=== PATIENT | female | born 2000 | race Caucasian/White ===

== ENCOUNTER 2024-09-05 04:29 | Emergency (ER) | payer SELFPAY ==
--- OUTSIDE RECORDS SUMMARY | 2024-09-05 04:33 | XMS REPORT | Continuity of Care Document ---
Author Name Unknown Address [address] [facility] [address] [place] [address] [facility] Address [address] [facility] [address] [place] [address] Care Team Providers Care Molder Offbearer Name Role Phone PCP, PATIENT DOES NOT HAVE A Primary Care Physic dale Unavailable Caroline PACK Attending Clinician Unavailable Caroline PACK Attending Clinician Unavailable Caroline Valdivia Attending Clinician [phone] Heri Luis MD Attending Clinician [phone] LAUREN YODER Attending Clinician Unavailab Lauren Russ DO Attending Clinician [phone] FEDERICA RESENDEZ Attending Clinician Unavailable Federica Palma Attending Clinician [phone] Janki Oscar LVN Attending Clinician + [phone] DAWSON PETERS Attending Clinician Unavailable DAWSON PETERS Attending Clinician Unavailable Mane Duarte DO Attending Clinician [phone] SRI ROJAS Attending Clinician Unav Sri Hinton MD Attending Clinician + CHRISTINE ORTEGA Attending Clinician Unavailable Christine Hong Attending Clinician [phone] IESHA GAMEZ Attending Clinician Unavailable Iesha Gamez NP Attending Clinician [phone] Yarima MD, [place] S Attending Clinician [phone] EDGAR ORONA Attending Clinician Unavailable DAWSON PETERS Admitting Clinician Unavailable SRI ROJAS Admitting Clinician Unav CHRISTINE Velasco Admitting Clinician Unavailable IESHA GAMEZ Admitting Clinician Unavailable Payers Payer Name Policy Type Policy Number Effective Date Expirati on Date Source Problems Condition Name Condition Details Condition Category Status Onset Date Resolution Date Last Treatment Date Treating Clinician Comments Source Mild intermitte nt asthma with exacerbati on Mild intermitte nt asthma with exacerbati on Disease Active 08-19 00:00: 00 [facility] Obesity (BMI 30-39.9) Obesity (BMI 30-39.9) Disease Active 08-19 00:00: 00 [facility] Vitamin D deficiency Vitamin D deficiency Disease Active 11-10 00:00: 00 [facility] Mild persistent asthma without complicati on Mild persistent asthma without complicati on Disease Active 10-02 00:00: 00 [facility] Perennial allergic rhinitis, unspecifie d allergic rhinitis trigger Perennial allergic rhinitis, unspecifie d allergic rhinitis trigger Disease Active 10-02 00:00: 00 [facility] Allergies, Adverse Reactions, Alerts Allergy Name Allergy Type Status Severity Reaction(s) Onset Date Inactive Date Treating Clinician Comments Source NO KNOWN ALLERGIE S Drug Class Active [facility] Social History Social Habit Start Date Stop Date Quantity Comments Source Gender identity [facility] History of tobacco use Passive smoker [facility] Alcoholic beverage intake 2024-03-15 00:00:00 2024-03-15 00:00:00 0 /d [facility] Alcohol intake 2023-08-22 00:00:00 2023-08-22 00:00:00 0 /d [facility] Tobacco use and exposure 2023-08-19 00:00:00 2023-08-19 00:00:00 Smokeless tobacco non-user [facility] History of Social function 2023-08-19 00:00:00 2023-08-19 00:00:00 [facility] Exposure to SARS-CoV-2 (event) 2022-11-10 00:00:00 2022-11-20 08:54:00 Not sure [facility] Sex assigned at 2001 00:00:00 2000 00:00:00 [facility] Smoking Status Start Date Stop Date Source Never smoked tobacco [facility] Medications Ordered Medication Name Filled Medication Name Start Date Stop Date Current Medication? Ordering Clinician Indication Dosage Frequency Signature (SIG) Comments Components Source ipratropium -albuteroL (DUONEB) 0.5 mg-3 mg(2.5 mg base)/3 mL nebulizer solution 3 mL 03-15 22:15: 00 03-15 21:27 :00 No 3mL 3 mL, Inhalation , ONCE, 1 dose, On Thu03/15/24 at 1715, Routine [facility] predniSONE (DELTASONE) tablet 50 mg 03-15 22:00: 00 03-15 21:25 :00 No 50mg 50 mg, Oral, ONCE, 1 dose, On Thu03/15/24 at 1700, Routine [facility] albuterol 90 mcg/actuati on inhaler 03-15 00:00: 00 Yes [id number] 2{puff} Inhale 2 Puffs every 4 (four) hours as needed for Wheezing or Shortness of Breath. [facility] ipratropium -albuteroL (DUONEB) 0.5 mg-3 mg(2.5 mg base)/3 mL nebulizer solution 3 mL 02-14 17:00: 00 Yes 3mL 3 mL, Inhalation , QID, First dose on Thu02/15/24 at 1200, Until Discontinu ed, Routine [facility] methylPREDN ISolone sod succ (SOLU-MEDRO L (PF)) injection 40 mg 02-14 15:30: 00 02-14 15:30 :00 No 40mg 40 mg, Intravenou s, ONCE, 1 dose, On Thu02/15/24 at 1030, NILO [facility] albuterol 90 mcg/actuati on inhaler 02-14 00:00: 00 Yes [id number] 2{puff} Inhale 2 Puffs every 4 (four) hours as needed for Wheezing or Shortness of Breath. [facility] albuterol 2.5 mg /3 mL (0.083 %) nebulizer solution 02-14 00:00: 00 Yes [id number] 2.5mg Inhale 3 mL every 4 (four) hours as needed for Wheezing or Shortness of Breath. [facility] ipratropium -albuteroL (DUONEB) 0.5 mg-3 mg(2.5 mg base)/3 mL nebulizer solution 3 mL 12-31 16:45: 00 12-31 16:05 :00 No 3mL 3 mL, Inhalation , ONCE, 1 dose, On Thu01/01/24 at 1145, Routine [facility] dexamethaso ne sod phos PF injection 10 mg 12-31 15:45: 00 12-31 15:53 :00 No 10mg 10 mg, Oral, ONCE, 1 dose, On Thu01/01/24 at 1045, 1 mL [facility] albuterol 90 mcg/actuati on inhaler 12-31 00:00: 00 02-14 00:00 :00 No [id number] 2{puff} Inhale 2 Puffs every 4 (four) hours as needed for Wheezing or Shortness of Breath. [facility] predniSONE 10 mg tablet 12-31 00:00: 00 01-05 04:59 :00 No [id number] 30mg Take 3 tablets by mouth in the morning for 4 days. [facility] albuterol (PROVENTIL) 2.5 mg /3 mL (0.083 %) nebulizer solution 7.5 mg 10-27 13:45: 00 10-27 12:36 :00 No 7.5mg 7.5 mg, Inhalation , ONCE, 1 dose, On Thu10/28/23 at 0845, STAT [facility] albuterol 90 mcg/actuati on inhaler 2024-0 4-03 00:00: 00 02-14 00:00 :00 No [id number] 2{puff} Inhale 2 Puffs every 4 (four) hours as needed for Wheezing or Shortness of Breath. [facility] montelukast 10 mg tablet 08-21 00:00: 00 Yes [id number] 10mg Take 1 tablet by mouth in the morning. [facility] budesonide- formoteroL (SYMBICORT) 160-4.5 mcg/actuati on inhaler 2 Puff 08-20 17:45: 00 Yes 2{puff} 2 Puff, Inhalation , BID, First dose (after last modificati on) on Thu08/20/23 at 1145, Until Discontinu ed, Routine [facility] escitalopra m oxalate (LEXAPRO) 5 mg tablet 08-20 13:36: 40 Yes 5mg Take 1 tablet by mouth in the morning. [facility] budesonide- formoteroL 160-4.5 mcg/actuati on inhaler 08-20 00:00: 00 Yes [id number] 2{puff} Inhale 2 Puffs in the morning and 2 Puffs in the evening. [facility] dextrometho rphan-guaif enesin 10-100 mg/5 mL solution 08-20 00:00: 00 Yes [id number] 10mL Take 10 mL by mouth every 6 (six) hours as needed for Cough. [facility] methylPREDN ISolone 4 mg tablets 08-20 00:00: 00 Yes [id number] Take by mouth SEE-INSTRU CTIONS. follow package directions [facility] enoxaparin (LOVENOX) injection 40 mg 08-19 23:00: 00 Yes 40mg 40 mg, Subcutaneo us, DAILY, First dose on Thu08/19/23 at 1700, Until Discontinu ed, Routine [facility] ipratropium -albuteroL (DUONEB) 0.5 mg-3 mg(2.5 mg base)/3 mL nebulizer solution 3 mL 08-19 18:00: 00 Yes 3mL 3 mL, Inhalation , Q4H, First dose (after last modificati on) on Thu08/19/23 at 1200, Until Discontinu ed, Routine [facility] escitalopra m oxalate (LEXAPRO) tablet 5 mg 08-19 17:30: 00 Yes 5mg 5 mg, Oral, DAILY, First dose on Thu08/19/23 at 1130, Until Discontinu ed, Routine [facility] montelukast (SINGULAIR) tablet 10 mg 08-19 17:00: 00 Yes 10mg 10 mg, Oral, DAILY, First dose on Thu08/19/23 at 1100, Until Discontinu ed, Routine [facility] dextrometho rphan-guaif enesin (ROBITUSSIN DM) 10-100 mg/5 mL solution 10 mL 08-19 16:49: 59 Yes 10mL 10 mL, Oral, Q6HPRN, Starting on Thu08/19/23 at 1049, Until Discontinu ed, Routine, Cough [facility] ipratropium -albuteroL (DUONEB) 0.5 mg-3 mg(2.5 mg base)/3 mL nebulizer solution 3 mL 08-19 16:49: 43 Yes 3mL 3 mL, Inhalation , Q4HPRN, Starting on Thu08/19/23 at 1049, Until Discontinu ed, Routine, Wheezing [facility] predniSONE (DELTASONE) tablet 40 mg 08-19 15:00: 00 08-24 14:59 :00 No 40mg 40 mg, Oral, DAILY, 5 doses, First dose on Thu08/19/23 at 0900, Last dose on Thu08/23/23 at 0900, Routine [facility] ipratropium -albuteroL (DUONEB) 0.5 mg-3 mg(2.5 mg base)/3 mL nebulizer solution 3 mL 08-19 14:00: 00 08-19 16:50 :22 No 3mL 3 mL, Inhalation , QID, First dose on Thu08/19/23 at 0800, Until Discontinu ed, Routine [facility] traMADoL (ULTRAM) tablet 50 mg 08-19 12:41: 39 08-21 12:40 :39 No 50mg 50 mg, Oral, Q8HPRN, Starting on Thu08/19/23 at 0641, Until Thu08/21/23 at 0640, Routine, Pain (scale 4-6) [facility] acetaminoph en (TYLENOL) tablet 650 mg 08-19 12:41: 37 Yes 650mg 650 mg, Oral, Q6HPRN, Starting on Thu08/19/23 at 0641, Until Discontinu ed, Routine, Pain (scale 1-3) [facility] ipratropium -albuteroL (DUONEB) 0.5 mg-3 mg(2.5 mg base)/3 mL nebulizer solution 3 mL 08-19 12:15: 00 08-19 11:13 :00 No 3mL 3 mL, Inhalation , ONCE, 1 dose, On Thu08/19/23 at 0615, Routine [facility] magnesium sulfate in water 2 gram/50 mL (4 %) infusion 2 g 08-19 12:00: 00 08-19 12:43 :00 No 2g 2 g, IV Piggyback, Administer over 60 Minutes, ONCE, 1 dose, On Thu08/19/23 at 0600, Routine [facility] NaCl 0.9% (NS) bolus infusion 1,000 mL 08-19 11:45: 00 08-19 13:00 :00 No 1000mL at 999 mL/hr, 1,000 mL, IV Infusion, ONCE, 1 dose, On Thu08/19/23 at 0545, NILO [facility] methylpredn isolone sod succ (SOLU-MEDRO L) injection 125 mg 08-19 11:45: 00 08-19 11:12 :00 No 125mg 125 mg, Intravenou s, ONCE, 1 dose, On Thu08/19/23 at 0545, 2 mL [facility] ipratropium -albuteroL (DUONEB) 0.5 mg-3 mg(2.5 mg base)/3 mL nebulizer solution 3 mL 2022-07 18:00: 00 05-08 18:47 :00 No 3mL 3 mL, Inhalation , ONCE, 1 dose, On Thu05/08/23 at 1300, Routine [facility] methylpredn isolone sod succ (SOLU-MEDRO L) injection 125 mg 2022-07 18:00: 00 05-08 18:44 :00 No 125mg 125 mg, Intramuscu lar, ONCE, 1 dose, On Thu05/08/23 at 1300, NILO [facility] predniSONE 20 mg tablet 2022-07 00:00: 00 Yes [id number] 1 PO BID x 4 days [facility] albuterol 90 mcg/actuati on inhaler 2022-07 00:00: 00 Yes [id number] 2{puff} Inhale 2 Puffs every 4 (four) hours as needed for Wheezing or Shortness of Breath. [facility] albuterol 2.5 mg /3 mL (0.083 %) nebulizer solution 04-14 00:00: 00 Yes [id number] 2.5mg Inhale 3 mL every 4 (four) hours as needed for Wheezing or Shortness of Breath. [facility] predniSONE 20 mg tablet 04-14 00:00: 00 Yes [id number] 1 PO BID x 4 days [facility] albuterol 90 mcg/actuati on inhaler 04-14 00:00: 00 10-27 00:00 :00 No [id number] 2{puff} Inhale 2 Puffs every 4 (four) hours as needed for Wheezing or Shortness of Breath. [facility] iopamidol (ISOVUE 370-500 mL) injection 75 mL 11-20 17:00: 00 11-20 17:15 :00 No [id number] 75mL 75 mL, Intravenou s, ONCE, 1 dose, On Thu11/20/22 at 1200, Routine [facility] NaCl 0.9% (NS) bolus infusion 1,000 mL 11-20 16:00: 00 11-20 17:19 :00 No 1000mL at 999 mL/hr, 1,000 mL, IV Infusion, ONCE, 1 dose, On Thu11/20/22 at 1100, STAT [facility] acetaminoph en (TYLENOL) tablet 1,000 mg 11-20 16:00: 00 11-20 14:58 :00 No 1000mg 1,000 mg, Oral, ONCE, 1 dose, On Thu11/20/22 at 1100, Routine [facility] ondansetron (ZOFRAN (PF)) injection 4 mg 11-20 15:00: 00 11-20 14:56 :00 No 4mg 4 mg, Slow IV Push, ONCE, 1 dose, [facility] Aarti 11/20/22 at 1000[facility] disintegrat ing tablet 11-20 00:00: 00 08-19 00:00 :00 No [id number] 4mg Take 1 tablet by mouth every 8 (eight) hours as needed for Nausea and Vomiting (N/V). [facility] NaCl 0.9% (NS) bolus infusion 1,000 mL 08-08 20:15: 00 08-08 21:12 :00 No 1000mL at 999 mL/hr, 1,000 mL, IV Piggyback, ONCE, 1 dose, On Thu08/08/22 at 1415, STAT [facility] NaCl 0.9% (NS) IV infusion 1,000 mL 08-08 18:45: 00 08-08 21:12 :00 No 1000mL at 999 mL/hr, Intravenou s, ONCE, 1 dose, On Thu08/08/22 at 1245, NILO [facility] iopamidol (ISOVUE 370-500 mL) injection 84 mL 08-08 17:00: 00 08-08 15:56 :00 No [id number] 84mL 84 mL, Intravenou s, ONCE, 1 dose, On Thu08/08/22 at 1100, Routine [facility] dicyclomine (BENTYL) injection 20 mg 08-08 16:30: 00 08-08 16:01 :00 No 20mg 20 mg, Intramuscu lar, ONCE, 1 dose, On Thu08/08/22 at 1030, Routine [facility] amoxicillin -clavulanat e 875-125 mg per tablet 08-08 00:00: 00 08-19 00:00 :00 No [id number] 1{tbl} Take 1 tablet by mouth every 12 (twelve) hours. [facility] dicyclomine 20 mg tablet 08-08 00:00: 00 08-19 00:00 :00 No [id number] 20mg Take 1 tablet by mouth 4 (four) times daily as needed for Abdominal pain. [facility] clindamycin (CLEOCIN) injection 600 mg 03-04 02:30: 00 03-04 02:30 :00 No 600mg 600 mg, Intramuscu lar, ONCE, 1 dose, On Thu03/03/22 at 2130, NILO
Re ason for Anti-Infec tive: Documented Infection< br>Documen spring Infection Site: Skin / Soft Tissue
Duration of Therapy: Other (see Comments)< br>Restric spring use approved by: ED PROVIDER [facility] clindamycin 300 mg capsule 03-03 00:00: 00 Yes [id number] 300mg Take 1 capsule by mouth 4 (four) times daily. [facility] ibuprofen 800 mg tablet 03-03 00:00: 00 08-19 00:00 :00 No [id number] 800mg Take 1 tablet by mouth every 8 (eight) hours as needed for Pain (scale 4-6). [facility] ALBUTEROL 2.5 mg /3 mL (0.083 %) nebulizer solution 3-15 00:00: 00 02-14 00:00 :00 No [id number] USE 1 VIAL IN NEBULIZER EVERY 6 HOURS NEEDED FOR SHORTNESS OF BREATH AND WHEEZING [facility] albuterol 90 mcg/actuati on inhaler 12-29 00:00: 00 08-19 00:00 :00 No [id number] 2{puff} Inhale 2 Puffs every 4 (four) hours as needed for Wheezing, Shortness of Breath or Chest tightness. [facility] montelukast 10 mg tablet 12-29 00:00: 00 08-19 00:00 :00 No [id number] 10mg Take 1 tablet by mouth every evening. [facility] Immunizations Ordered Immunization Name Filled Immunization Name Date Status Comments Source Meningococcal Polysaccharide (groups A, C, Y and W-135) conjugate vaccine (MCV4P) 2017-12-29 00:00:00 Completed [facility]9 2017-12-29 00:00:00 Completed [facility] Meningococcal Polysaccharide (groups A, C, Y and W-135) conjugate vaccine (MCV4P) 2017-12-29 00:00:00 Completed [facility] HPV9 2017-12-29 00:00:00 Completed [facility] Meningococcal Polysaccharide (groups A, C, Y and W-135) conjugate vaccine (MCV4P) 2017-12-29 00:00:00 Completed [facility] HPV9 2017-12-29 00:00:00 Completed [facility] Meningococcal Polysaccharide (groups A, C, Y and W-135) conjugate vaccine (MCV4P) 2017-12-29 00:00:00 Completed [facility] HPV9 2017-12-29 00:00:00 Completed [facility] Meningococcal Polysaccharide (groups A, C, Y and W-135) conjugate vaccine (MCV4P) 2017-12-29 00:00:00 Completed [facility] 2017-12-29 00:00:00 Completed [facility] 2016-11-06 00:00:00 Completed [facility] 2016-11-06 00:00:00 Completed [facility] 2016-11-06 00:00:00 Completed [facility] 2016-11-06 00:00:00 Completed [facility] HPV9 2016-11-06 00:00:00 Completed [facility] HPV9 Unknown Completed [facility] Meningococcal Polysaccharide (groups A, C, Y and W-135) conjugate vaccine (MCV4P) Unknown Completed [facility] HPV9 Unknown Completed [facility] Meningococcal Polysaccharide (groups A, C, Y and W-135) conjugate vaccine (MCV4P) Unknown Completed [facility] HPV9 Unknown Completed [facility] Meningococcal Polysaccharide (groups A, C, Y and W-135) conjugate vaccine (MCV4P) Unknown Completed [facility] HPV9 Unknown Completed [facility] Meningococcal Polysaccharide (groups A, C, Y and W-135) conjugate vaccine (MCV4P) Unknown Completed [facility] HPV9 Unknown Completed [facility] Meningococcal Polysaccharide (groups A, C, Y and W-135) conjugate vaccine (MCV4P) Unknown Completed [facility] HPV9 Unknown Completed [facility] Meningococcal Polysaccharide (groups A, C, Y and W-135) conjugate vaccine (MCV4P) Unknown Completed [facility] HPV9 Unknown Completed [facility] Meningococcal Polysaccharide (groups A, C, Y and W-135) conjugate vaccine (MCV4P) Unknown Completed [facility] Vital Signs Vital Name Observation Time Observation Value Comments S ource Systolic blood pressure 2024-03-15 22:45:00 121 mm[Hg] [facility] Diastolic blood pressure 2024-03-15 22:45:00 70 mm[Hg] [facility] Heart rate 2024-03-15 22:45:00 78 /min [facility] Body temperature 2024-03-15 22:45:00 36.67 Maia [facility] Respiratory rate 2024-03-15 22:45:00 18 /min [facility] Oxygen saturation in Arterial blood by Pulse oximetry 2024-03-15 22:45:00 100 /min [facility] Body height 2024-03-15 21:02:00 157.5 cm [facility] Body weight 2024-03-15 21:02:00 77.111 kg [facility] BMI 2024-03-15 21:02:00 31.09 kg/m2 [facility] Systolic blood pressure 2024-02-15 15:30:00 118 mm[Hg] [facility] Diastolic blood pressure 2024-02-15 15:30:00 84 mm[Hg] [facility] Heart rate 2024-02-15 15:30:00 90 /min [facility] Respiratory rate 2024-02-15 15:30:00 17 /min [facility] Oxygen saturation in Arterial blood by Pulse oximetry 2024-02-15 15:30:00 93 /min [facility] Body temperature 2024-02-15 15:19:00 37.11 Maia [facility] Body height 2024-02-15 15:19:[address] [facility] Body weight 2024-02-15 15:19:00 77.111 kg [facility] BMI 2024-02-15 15:19:00 29.18 kg/m2 [facility] Systolic blood pressure 2024-01-01 17:03:00 119 mm[Hg] [facility] Diastolic blood pressure 2024-01-01 17:03:00 78 mm[Hg] [facility] Heart rate 2024-01-01 17:03:00 74 /min [facility] Respiratory rate 2024-01-01 17:03:00 16 /min [facility] Oxygen saturation in Arterial blood by Pulse oximetry 2024-01-01 17:03:00 98 /min [facility] Body temperature 2024-01-01 15:35:00 37.22 Maia [facility] Body height 2024-01-01 15:35:00 [facility]5 [facility] 2024-01-01 15:35:00 76.204 kg [facility] BMI 2024-01-01 15:35:00 30.73 kg/m2 [facility] Systolic blood pressure 2023-10-28 15:00:00 113 mm[Hg] [facility] Diastolic blood pressure 2023-10-28 15:00:00 76 mm[Hg] [facility] Heart rate 2023-10-28 15:00:00 105 /min [facility] Respiratory rate 2023-10-28 15:00:00 16 /min [facility] Oxygen saturation in Arterial blood by Pulse oximetry 2023-10-28 15:00:00 96 /min [facility] Body temperature 2023-10-28 12:27:00 37.39 Maia [facility] Body height 2023-10-28 12:27:00 157.5 cm [facility] Body weight 2023-10-28 12:27:00 76.658 kg [facility] BMI 2023-10-28 12:27:00 30.91 kg/m2 [facility] Systolic blood pressure 2023-08-20 18:28:00 120 mm[Hg] [facility] Diastolic blood pressure 2023-08-20 18:28:00 78 mm[Hg] [facility] Heart rate 2023-08-20 18:28:00 111 /min [facility] Body temperature 2023-08-20 18:28:00 36.56 Maia [facility] Respiratory rate 2023-08-20 18:28:00 16 /min [facility] Oxygen saturation in Arterial blood by Pulse oximetry 2023-08-20 18:28:00 97 /min [facility] Body weight 2023-08-20 09:13:00 80.468 kg [facility] BMI 2023-08-20 09:13:00 32.45 kg/m2 [facility] Body height 2023-08-19 15:27:00 157.5 cm [facility] Systolic blood pressure 2023-05-08 20:30:00 120 mm[Hg] [facility] Diastolic blood pressure 2023-05-08 20:30:00 73 mm[Hg] [facility] Heart rate 2023-05-08 20:30:00 72 /min [facility] Body temperature 2023-05-08 20:30:00 37.28 Maia [facility] Respiratory rate 2023-05-08 20:30:00 16 /min [facility] Oxygen saturation in Arterial blood by Pulse oximetry 2023-05-08 20:30:00 99 /min [facility] Body height 2023-05-08 16:31:[address] [facility] Body weight 2023-05-08 16:31:[address] [facility] BMI 2023-05-08 16:31:00 31.09 kg/m2 [facility] Oxygen saturation in Arterial blood by Pulse oximetry 2023-03-23 23:03:00 98 /min [facility] Systolic blood pressure 2023-03-23 23:00:00 117 mm[Hg] [facility] Diastolic blood pressure 2023-03-23 23:00:00 75 mm[Hg] [facility] Heart rate 2023-03-23 23:00:00 85 /min [facility] Respiratory rate 2023-03-23 23:00:00 16 /min [facility] Body temperature 2023-03-23 22:05:00 36.72 Maia [facility] Body height 2023-03-23 22:05:00 157.5 cm [facility] Body weight 2023-03-23 22:05:00 77.111 kg [facility] BMI 2023-03-23 22:05:00 31.09 kg/m2 [facility] Systolic blood pressure 2022-11-20 17:20:00 121 mm[Hg] [facility] Diastolic blood pressure 2022-11-20 17:20:00 78 mm[Hg] [facility] Heart rate 2022-11-20 17:20:00 96 /min [facility] Respiratory rate 2022-11-20 17:20:00 17 /min [facility] Oxygen saturation in Arterial blood by Pulse oximetry 2022-11-20 17:20:00 95 /min [facility] Body temperature 2022-11-20 14:19:00 38.78 Maia [facility] Body weight 2022-11-20 13:52:00 75.751 kg [facility] BMI 2022-11-20 13:52:00 30.54 kg/m2 [facility] Heart rate 2022-08-08 19:10:07 96 /min [facility] Oxygen saturation in Arterial blood by Pulse oximetry 2022-08-08 19:10:07 97 /min [facility] Systolic blood pressure 2022-08-08 19:00:00 124 mm[Hg] [facility] Diastolic blood pressure 2022-08-08 19:00:00 81 mm[Hg] [facility] Respiratory rate 2022-08-08 19:00:00 15 /min [facility] Body temperature 2022-08-08 14:48:00 37.17 Maia [facility] Body height 2022-08-08 14:48:00 157.5 cm [facility] Body weight 2022-08-08 14:48:00 78.926 kg [facility] BMI 2022-08-08 14:48:00 31.83 kg/m2 [facility] Systolic blood pressure 2022-03-04 03:45:00 135 mm[Hg] [facility] Diastolic blood pressure 2022-03-04 03:45:00 80 mm[Hg] [facility] Heart rate 2022-03-04 03:45:00 79 /min [facility] Res[facility] rate 2022-03-04 03:45:00 18 /min [facility] Oxygen saturation in Arterial blood by Pulse oximetry 2022-03-04 03:45:00 100 /min [facility] Body temperature 2022-03-04 00:53:00 36.83 Maia [facility] Body height 2022-03-04 00:53:00 157.5 cm [facility] Body weight 2022-03-04 00:53:00 86.183 kg [facility] BMI 2022-03-04 00:53:00 34.75 kg/m2 [facility] Procedures Procedure Date / Time Performed Performing Clinicia n Source POCT TEST 2024-03-15 22:31:00 Caroline Pack [facility] BASIC METABOLIC PANEL (NA, K, CL, CO2, GLUCOSE, BUN, CREATININE, CA) 2023-08-20 10:14:00 Pete Morgan [facility] CBC WITH DIFF 2023-08-20 10:14:00 [facility] WITH DIFF 2023-08-19 11:25[facility] 2023-08-19 11:14:41 Felicia [facility] COMP. METABOLIC PANEL ([id number]) 2023-08-19 11:09:00 Mane Duarte [facility] CONSENT/REFUSAL FOR DIAGNOSIS AND TREATMENT 2023-08-19 10:53:04 Doctor Unassigned, [facility] ASSIGNMENT OF BENEFITS 2023-05-08 17:46:50 Docto r Unassigned, [facility] CONSENT/REFUSAL FOR DIAGNOSIS AND TREATMENT 2023-05-08 17:46:10 Doctor Unassigned, [facility] XR CHEST 1 VW 2023-03-23 23:04:08 Sri Rojas [facility] CT ABDOMEN PELVIS W CONTRAST 2022-11-20 17:05:00 Christine Ortega [facility] RAPID INFLUENZA A/B 2022-11-20 15:00:00 Christine Ortega [facility] COVID-19 (ID NOW RAPID TESTING) 2022-11-20 15:00:00 Christine Ortega [facility] LIPASE 2022-11-20 14:26:00 Christine Ortega [facility] COMP. METABOLIC PANEL ([id number]) 2022-11-20 14:26:00 Christine Ortega [facility] CBC WITH DIFF 2022-11-20 14:26:00 Christine Ortega [facility] URINALYSIS 2022-11-20 14:26:00 Christine Ortega [facility] POCT TEST 2022-11-20 14:17:00 Christine Ortega [facility] US OVARY TORSION 2022-08-08 19:59:03 Iesha Gamez [facility] CT ABDOMEN PELVIS W CONTRAST 2022-08-08 16:13:53 Iesha Gamez [facility] POCT TEST 2022-08-08 15:11:00 Iesha Gamez [facility] URINALYSIS 2022-08-08 15:08:00 Iesha Gamez [facility] LIPASE 2022-08-08 15:06:00 Iesha Gamez [facility] COMP. METABOLIC PANEL ([id number]) 2022-08-08 15:06:00 Iesha Gamez [facility] CBC WITH DIFF 2022-08-08 15:06:00 Iesha Gamez [facility] NOTICE OF PRIVACY PRACTICES 2022-03-04 00:43:47 Doctor Unassigned, [facility] CONSENT/REFUSAL FOR DIAGNOSIS AND TREATMENT 2022-03-04 00:43:14 Doctor Unassigned, [facility] Encounters Start Date/Time End Date/Time Encounter Type Admission Type Attending Clinicians Care Facility Care Department Encounter ID Source 2024-03-15 16:05:00 2024-03-15 17:47:00 Emergency Caroline GASTELUM K [facility] ERT [id number] [facility] 2024-03-15 16:05:00 2024-03-15 17:47:00 Emergency Caroline Pack [facility] 1..840.114 350.1.13.10 4.2.7.2.686 [id number] [facility] 2024-02-15 10:12:00 2024-02-15 10:45:00 Emergency LAUREN SMART [facility] ERT [id number] [facility] 2024-02-15 10:12:00 2024-02-15 10:45:00 Emergency Lauren Yoder [facility] 1..840.114 350.1.13.10 4.2.7.2.686 [id number] [facility] 2024-01-01 10:45:00 2024-01-01 12:05:00 Emergency X [facility] ERT [id number] [facility] 2024-01-01 10:45:00 2024-01-01 12:05:00 Emergency Keven [facility] 1.2.840.114 350.1.13.10 4.2.7.2.686 [id number] [facility] 2023-10-28 07:24:00 2023-10-28 10:41:00 Emergency X [facility] ERT [id number] [facility] 2023-10-28 07:24:00 2023-10-28 10:41:00 Emergency Paresh [facility] 1.2.840.114 350.1.13.10 4.2.7.2.686 [id number] [facility] 2023-08-21 00:00:00 2023-08-21 00:00:00 Transition of Care Janki Oscar 1.2.840.114 350.1.13.10 4.2.7.2.686 [id number] [facility] 2023-08-19 04:54:00 2023-08-20 13:30:00 Inpatient X [facility] KRISTINA [id number] [facility] 2023-08-19 04:54:00 2023-08-20 13:30:00 Hospital Encounter Mane Duarte Dawson [facility] 1.2.840.114 350.1.13.10 4.2.7.2.686 [id number] [facility] 2023-05-08 11:41:00 2023-05-08 15:33:00 Emergency X Caroline PACK [facility] ERT [id number] [facility] 2023-05-08 11:41:00 2023-05-08 15:33:00 Emergency Caroline Pack [facility] 1.2.840.114 350.1.13.10 4.2.7.2.686 [id number] [facility] 2023-04-14 15:15:00 2023-04-14 18:50:00 Emergency X Caroline PACK [facility] ERT [id number] [facility] 2023-03-23 16:57:00 2023-03-23 18:37:00 Emergency X SRI ROJAS [facility] ERT [id number] [facility] 2023-03-23 16:57:00 2023-03-23 18:37:00 Emergency Sri Rojas [facility] 1.2.840.114 350.1.13.10 4.2.7.2.686 [id number] [facility] 2022-11-20 08:46:00 2022-11-20 14:07:00 Emergency X CHRISTINE ORTEGA [facility] ERT [id number] [facility] 2022-11-20 08:46:00 2022-11-20 14:07:00 Emergency Christine Ortega S [facility] 1.2.840.114 350.1.13.10 4.2.7.2.686 [id number] [facility] 2022-08-30 14:46:00 2022-08-30 16:06:00 Emergency [facility] 1.2.840.114 350.1.13.10 4.2.7.2.686 [id number] [facility] 2022-08-30 14:46:00 2022-08-30 16:06:00 Emergency X [facility] ERT [id number] [facility] 2022-08-08 08:42:00 2022-08-08 15:16:00 Emergency X IESHA GAMEZ [facility] ERT [id number] [facility] 2022-08-08 08:42:00 2022-08-08 15:16:00 Emergency Iesha Gamez [facility] 1.2.840.114 350.1.13.10 4.2.7.2.686 [id number] [facility] 2022-03-03 19:59:00 2022-03-03 23:33:00 Emergency Edgar Orona [facility] 1.2.840.114 350.1.13.10 4.2.7.2.686 [id number] [facility] 2022-03-03 19:59:00 2022-03-03 23:33:00 Emergency X EDGAR ORONA [facility] ERT [id number] [facility] Results Test Description Test Time Test Comments Results Result Co mments Source [facility] [id number] 13:43:04EXAM: XR CHEST 1 VW COMPARISON: Chest radiographs dated 03/23/2023 HISTORY: 23 years old Female withasthma FINDINGS:Lines and tubes: None. Lungs: The lung volumes are normal. No focal opacities. No pleuralabnormalities are detected. Heart/Mediastinum: The cardiac silhouette appears normal. Bones and soft tissues: No focal osseous lesions.[facility] WITH [id number] 11:33:03* Test Item Value Reference Range Interpretation Comme nts WBC (test code = 6690-2) 10.37 See_Comment [Automated Soshow[employer]] The system which generated this result transmitted reference range: 4.30 - 11.10 10*3/?L. The reference range was not used to interpret this result as normal/abnormal. RBC (test code = 789-8) 4.95 See_Comment [Automated [employer]] The system which generated this result transmitted reference range: 3.93 - 5.25 10*6/?L. The reference range was not used to interpret this result as normal/abnormal. HGB (test code = 718-7) 13.5 g/dL 11.6-15.0 HCT (test code = 4544-3) 37.0 % 35.7-45.2 MCV (test code = 787-2) 74.7 fL 80.6-95.5 L MCH (test code = 785-6) 27.3 pg 25.9-32.8 MCHC (test code = 786-4) 36.5 g/dL 31.6-35.1 H RDW-SD (test code = 62522-5) 35.3 fL 39.0-49.9 L RDW-CV (test code = 788-0) 13.3 % 12.0-15.5 PLT (test code = 777-3) 174 See_Comment [Automated [employer] ge] The system which generated this result transmitted reference range: 166 - 358 10*3/?L. The reference range was not used to interpret this result as normal/abnormal. MPV (test code = 68003-5) 10.4 fL 9.5-12.9 NRBC/100 WBC (test code = 3147078572) 0.0 See_Comment [Automated OBOOK ssage] The system which generated this result transmitted reference range: 0.0 - 10.0 /100 WBCs. The reference range was not used to interpret this result as normal/abnormal. NRBC x10^3 (test code = 0408928362) See_Comment [Automated [employer] ge] The system which generated this result transmitted reference range: 10*3/?L. The reference range was not used to interpret this result as normal/abnormal. GRAN MAT (NEUT) % (test code = 770-8) 62.6 % IMM GRAN % (test code = 8672907828) 0.20 % LYMPH % (test code = 736-9) 27.6 % MONO % (test code = 5905-5) 5.1 % EOS % (test code = 713-8) 3.6 % BASO % (test code = 706-2) 0.9 % GRAN MAT x10^3(ANC) (test code = 9994572139) 6.50 10*3/uL 1.88-7.09 IMM GRAN x10^3 (test code = 5971517749) 0.00-0.06 LYMPH x10^3 (test code = 731-0) 2.86 10*3/uL 1.32-3.29 MONO x10^3 (test code = 742-7) 0.53 10*3/uL 0.33-0.92 EOS x10^3 (test code = 711-2) 0.37 10*3/uL 0.03-0.39 BASO x10^3 (test code = 704-7) 0.09 10*3/uL 0.01-0.07 H Lab Interpretation (test code = 05704-6) Abnormal [facility] ([id number])2023-08-19 11:29:24* Test Item Value Reference Range Interpretation Comme nts NA (test code = 4611475623) 137 mmol/L 135-145 K (test code = 5622448363) 3.8 mmol/L 3.5-5.0 CL (test code = 4646691672) 104 mmol/L 98-108 CO2 TOTAL (test code = 4861338524) 21 mmol/L 23-31 L AGAP (test code = 8348244147) 12 2-16 BUN (test code = 5434275573) 13 mg/dL 7-23 GLUCOSE (test code = 1356764793) 152 mg/dL 70-110 H CREATININE (test code = 1878724466) 0.64 mg/dL 0.50-1.04 TOTAL BILI (test code = 6371717476) 0.5 mg/dL 0.1-1.1 CALCIUM (test code = 2483881758) 9.0 mg/dL 8.6-10.6 T PROTEIN (test code = 5506338600) 8.0 g/dL 6.3-8.2 ALBUMIN (test code = 8576357955) 4.6 g/dL 3.5-5.0 ALK PHOS (test code = 2349460144) 64 U/L 34-122 ALTv (test code = 1742-6) 12 U/L 5-35 AST(SGOT) (test code = 9425768400) 24 U/L 13-40 eGFR (test code = 61736-8) 128.3 mL/min/1.73m2 CKD-EPI eGFR (2020). Assuming creatinine has been stable day-to-day for at least three months, the eGFR indicates Category G1 (>= 90 mL/min/1.73 m2) Lab Interpretation (test code = 94806-1) Abnormal [facility] WITH [id number] 15:17:33* Test Item Value Reference Range Interpretation Comme nts WBC (test code = 6690-2) 4.74 See_Comment [Automated message] The system which generated this result transmitted reference range: 4.30 - 11.10 10*3/?L. The reference range was not used to interpret this result as normal/abnormal. RBC (test code = 789-8) 4.56 See_Comment [Automated message] The system which generated this result transmitted reference range: 3.93 - 5.25 10*6/?L. The reference range was not used to interpret this result as normal/abnormal. HGB (test code = 718-7) 11.8 g/dL 11.6-15.0 HCT (test code = 4544-3) 36.0 % 35.7-45.2 MCV (test code = 787-2) 78.9 fL 80.6-95.5 L MCH (test code = 785-6) 25.9 pg 25.9-32.8 MCHC (test code = 786-4) 32.8 g/dL 31.6-35.1 RDW-SD (test code = 67417-5) 35.3 fL 39.0-49.9 L RDW-CV (test code = 788-0) 12.4 % 12.0-15.5 PLT (test code = 777-3) 164 See_Comment L [Automated message] The system which generated this result transmitted reference range: 166 - 358 10*3/?L. The reference range was not used to interpret this result as normal/abnormal. MPV (test code = 28241-3) 10.3 fL 9.5-12.9 NRBC/100 WBC (test code = 7136778953) 0.0 See_Comment [Automated message] The system which generated this result transmitted reference range: 0.0 - 10.0 /100 WBCs. The reference range was not used to interpret this result as normal/abnormal. NRBC x10^3 (test code = 5299779964) See_Comment [Automated message] The system which generated this result transmitted reference range: 10*3/?L. The reference range was not used to interpret this result as normal/abnormal. GRAN MAT (NEUT) % (test code = 770-8) 58.3 % IMM GRAN % (test code = 3527628421) 0.40 % LYMPH % (test code = 736-9) 29.5 % MONO % (test code = 5905-5) 10.5 % EOS % (test code = 713-8) 0.2 % BASO % (test code = 706-2) 1.1 % GRAN MAT x10^3(ANC) (test code = 2815228275) 2.76 10*3/uL 1.88-7.09 IMM GRAN x10^3 (test code = 8244589903) 0.00-0.06 LYMPH x10^3 (test code = 731-0) 1.40 10*3/uL 1.32-3.29 MONO x10^3 (test code = 742-7) 0.50 10*3/uL 0.33-0.92 EOS x10^3 (test code = 711-2) 0.03-0.39 L BASO x10^3 (test code = 704-7) 0.05 10*3/uL 0.01-0.07 BANDS (test code = 0851672611) MARKED INCREASED A REACT LYMPHS (test code = 8802584484) Rare GIANT PLATELETS (test code = 5908-9) Present See_Comment A [Automated message] The system which generated this result transmitted reference range: (none). The reference range was not used to interpret this result as normal/abnormal. Lab Interpretation (test code = 18896-2) Abnormal [facility]. METABOLIC PANEL ([id number])2022-11-20 15:03:06* Test Item Value Reference Range Interpretation Comme nts NA (test code = 9961541162) 136 mmol/L 135-145 K (test code = 0037324870) 4.3 mmol/L 3.5-5.0 CL (test code = 8104999573) 105 mmol/L 98-108 CO2 TOTAL (test code = 6987878474) 27 mmol/L 23-31 AGAP (test code = 6166623033) 4 2-16 BUN (test code = 4502485152) 9 mg/dL 7-23 GLUCOSE (test code = 8623535151) 96 mg/dL 70-110 CREATININE (test code = 1083072544) 0.73 mg/dL 0.50-1.04 TOTAL BILI (test code = 8514668926) 0.5 mg/dL 0.1-1.1 CALCIUM (test code = 3694850952) 8.7 mg/dL 8.6-10.6 T PROTEIN (test code = 4694565328) 6.8 g/dL 6.3-8.2 ALBUMIN (test code = 8420044214) 3.9 g/dL 3.5-5.0 ALK PHOS (test code = 4182129178) 61 U/L 34-122 ALTv (test code = 1742-6) 47 U/L 5-35 H AST(SGOT) (test code = 5873697748) 59 U/L 13-40 H eGFR (test code = 8702925570) 100.6 mL/min/1.73m2 RASHIDA (test code = RASHIDA) Association of Glomerular Filtration Rate (GFR) and Staging of Kidney Disease* + --+ --+ ------+| GFR (mL/min/1.73 m2) ?| With Kidney Damage ?| ?Without Kidney Damage+ --------+ --------+ +| ?>90 ?| ?Stage one ?| ? Normal ?+ ---+ ---+ -------+| ?60-89 ?| ?Stage two ?| ? Decreased GFR ? + --+ --+ ------+| ?30-59 ?| ?Stage three ?| ? Stage three ? + --+ --+ ------+| ?15-29 ?| ?Stage four ? | ? Stage four ?+ ---+ ---+ -------+| ?<15 (or dialysis) ? ?| ?Stage five ? | ? Stage five ?+ ---+ ---+ -------+ *Each stage assumes the associated GFR level has been in effect for at least three months. ?Stages 1 to 5, with or without kidney disease, indicate chronic kidney disease. Notes: Determination of stages one and two (with eGFR >59mL/min/1.73 m2) requires estimation of kidney damage for at least three months as defined by structural or functional abnormalities of the kidney, manifested by either:Pathological abnormalities or Markers of kidney damage (including abnormalities in the composition of the blood or urine or abnormalities in imaging tests). Lab Interpretation (test code = 13051-8) Abnormal [facility] 15:02:41* Test Item Value Reference Range Interpretation Comme nts LIPASE (test code = 7448505027) 93 U/L 0-220 Lab Interpretation (test cod e = 11639-5) Normal [facility] [id number] 14:17:00* Test Item Value Reference Range Interpretation Comme nts POCT PREG (test code = 1605) negative On board controls acceptable with C Line (test code = 3574) present POCT PREG LOT # (test code = 3575) [id number] POCT PREG TEST DATE (test code = 3576) 03/03/2024 Lab Interpretation (test cod e = 84526-8) Normal [facility] (29421)2022-08-08 15:38:58* Test Item Value Reference Range Interpretation Comme nts NA (test code = 6631670686) 136 mmol/L 135-145 K (test code = 3494244545) 3.8 mmol/L 3.5-5.0 CL (test code = 3328194034) 101 mmol/L 98-108 CO2 TOTAL (test code = 6841061503) 23 mmol/L 23-31 AGAP (test code = 7825774356) 2-16 BUN (test code = 2663617294) 13 mg/dL 7-23 GLUCOSE (test code = 0912890634) 102 mg/dL 70-110 CREATININE (test code = 8998184226) 0.66 mg/dL 0.50-1.04 TOTAL BILI (test code = 3541075755) 0.9 mg/dL 0.1-1.1 CALCIUM (test code = 1181599669) 8.8 mg/dL 8.6-10.6 T PROTEIN (test code = 5393586073) 7.4 g/dL 6.3-8.2 ALBUMIN (test code = 7941471479) 4.4 g/dL 3.5-5.0 ALK PHOS (test code = 7481785766) 80 U/L 34-122 ALTv (test code = 1742-6) 18 U/L 5-35 AST(SGOT) (test code = 0635259994) 19 U/L 13-40 eGFR (test code = 3472473747) mL/min/1.73m2 RASHIDA (test code = RASHIDA) Association of Glomerular Filtration Rate (GFR) and Staging of Kidney Disease* + + +- +| GFR (mL/min/1.73 m2) ?| With Kidney Damage ?| ?Without Kidney Damage+ ------+ ----+ ------+| ?>90 ?| ?Stage one ?| ? Normal ?+ -+ + -+| ?60-89 ?| ?Stage two ?| ? Decreased GFR ? + + +- +| ?30-59 ?| ?Stage three ?| ? Stage three ? + + +- +| ?15-29 ?| ?Stage four ? | ? Stage four ?+ -+ + -+| ?<15 (or dialysis) ? ?| ?Stage five ? | ? Stage five ?+ -+ + -+ *Each stage assumes the associated GFR level has been in effect for at least three months. ?Stages 1 to 5, with or without kidney disease, indicate chronic kidney disease. Notes: Determination of stages one and two (with eGFR >59mL/min/1.73 m2) requires estimation of kidney damage for at least three months as defined by structural or functional abnormalities of the kidney, manifested by either:Pathological abnormalities or Markers of kidney damage (including abnormalities in the composition of the blood or urine or abnormalities in imaging tests). [facility] 15:38:38* Test Item Value Reference Range Interpretation Comme nts LIPASE (test code = 1506810303) 471 U/L 0-220 H Lab Interpretation (test cod e = 39937-0) Abnormal [facility] WITH [id number] 15:30:56* Test Item Value Reference Range Interpretation Comme nts WBC (test code = 6690-2) See_Comment H [Automated message] The system which generated this result transmitted reference range: 4.30 - 11.10 10*3/?L. The reference range was not used to interpret this result as normal/abnormal. RBC (test code = 789-8) See_Comment [Automated message] The system which generated this result transmitted reference range: 3.93 - 5.25 10*6/?L. The reference range was not used to interpret this result as normal/abnormal. HGB (test code = 718-7) 13.0 g/dL 11.6-15.0 HCT (test code = 4544-3) 40.6 % 35.7-45.2 MCV (test code = 787-2) 81.2 fL 80.6-95.5 MCH (test code = 785-6) 26.0 pg 25.9-32.8 MCHC (test code = 786-4) 32.0 g/dL 31.6-35.1 RDW-SD (test code = 94506-3) 39.7 fL 39.0-49.9 RDW-CV (test code = 788-0) 13.4 % 12.0-15.5 PLT (test code = 777-3) See_Comment [Automated message] The system which generated this result transmitted reference range: 166 - 358 10*3/?L. The reference range was not used to interpret this result as normal/abnormal. MPV (test code = 53484-7) 10.7 fL 9.5-12.9 NRBC/100 WBC (test code = 9453229060) See_Comment [Automated message] The system which generated this result transmitted reference range: 0.0 - 10.0 /100 WBCs. The reference range was not used to interpret this result as normal/abnormal. NRBC x10^3 (test code = 0429094437) See_Comment [Automated message] The system which generated this result transmitted reference range: 10*3/?L. The reference range was not used to interpret this result as normal/abnormal. GRAN MAT (NEUT) % (test code = 770-8) 82.3 % IMM GRAN % (test code = 9146964395) 0.60 % LYMPH % (test code = 736-9) 8.5 % MONO % (test code = 5905-5) 5.8 % EOS % (test code = 713-8) 2.4 % BASO % (test code = 706-2) 0.4 % GRAN MAT x10^3(ANC) (test code = 8238854577) 11.01 10*3/uL 1.88-7.09 H IMM GRAN x10^3 (test code = 5537855951) 0.08 10*3/uL 0.00-0.06 H LYMPH x10^3 (test code = 731-0) 1.14 10*3/uL 1.32-3.29 L MONO x10^3 (test code = 742-7) 0.78 10*3/uL 0.33-0.92 EOS x10^3 (test code = 711-2) 0.32 10*3/uL 0.03-0.39 BASO x10^3 (test code = 704-7) 0.05 10*3/uL 0.01-0.07 Lab Interpretation (test code = 20631-2) [facility]normal [facility] [id number] 15:11:00* Test Item Value Reference Range Interpretation Comme nts POCT PREG (test code = 1605) negative On board controls acceptable with C Line (test code = 3574) present Lab Interpretation (test cod e = 33392-5) Normal [facility] History and Physical Notes Date/Time Note Provider Source 2023-08-19 11:06:58 Medicine History & Physical Date of Service: 08/19/2023 Pt presents from: Home CC: SOB History of Present Illness: Dario Perla is a 23 year old female with a PMH of obesity, moderate persistent asthma and depression who presented to the ED for SOB. She developed chest pain, SOB, audible wheezing and a dry cough around 2 AM this morning. She denies fever, chills, nausea, vomiting or diarrhea. Her symptoms didn't improve with her rescue inhaler. She was hospitalized for an asthma exacerbation last April and has never had to be intubated. She not currently under the care of a physician and buys her albuterol inhaler over the counter. She reports having to use her albuterol inhaler daily for the last few months. Her symptoms this morning persisted and were severe enough to prevent her from sleeping so she came to the ED for further evaluation. In the ED, she was diagnosed with acute respiratory failure with hypoxia due to an asthma exacerbation and received IVFs, a Duoneb treatment, IV Solumedrol and IV magnesium sulfate. Her symptoms improved a little and she was admitted for further management. ROS: Pt endorses chest pain, SOB, wheezing and cough. Pt denies fever / chills / nausea / vomiting / diarrhea / constipation / abdominal pain / dysuria / hematuria / melena / hematochezia / rashes / suicidal or homicidal ideation / All others negative Review of Hx/Meds: No current facility-administered medications on file prior to encounter. Current Outpatient Medications on File Prior to Encounter Medication Sig Dispense Refill escitalopram oxalate (LEXAPRO) 5 mg tablet Take 1 tablet by mouth in the morning. albuterol 90 mcg/actuation inhaler Inhale 2 Puffs every 4 (four) hours as needed for Wheezing or Shortness of Breath. 8.5 g 0 ALBUTEROL 2.5 mg /3 mL (0.083 %) nebulizer solution USE 1 VIAL IN NEBULIZER EVERY 6 HOURS NEEDED FOR SHORTNESS OF BREATH AND WHEEZING 300 Each 1 I have reviewed the patient's home medications PMH: Past Medical History: Diagnosis Date Asthma Perennial allergic rhinitis, unspecified allergic rhinitis trigger 10/02/2016 PSH: has no past surgical history on file. Family Hx: Denies family history of asthma, HTN, DM, CAD, MO or cancer Social History Tobacco Use Smoking status: Never Passive exposure: Current Smokeless tobacco: Never Substance Use Topics Alcohol use: No Alcohol/week: 0.0 standard drinks of alcohol Drug use: No Current Scheduled Medications Current IV Current Facility-Administered Medications: acetaminophen (TYLENOL) tablet 650 mg, 650 mg, Oral, Q6HPRN, Dawson Peters MD dextromethorphan-guaifenesin (ROBITUSSIN DM) 10-100 mg/5 mL solution 10 mL, 10 mL, Oral, Q6HPRN, Pete Morgan MD enoxaparin (LOVENOX) injection 40 mg, 40 mg, Subcutaneous, DAILY, Dawson Peters MD escitalopram oxalate (LEXAPRO) tablet 5 mg, 5 mg, Oral, DAILY, Pete Morgan MD ipratropium-albuteroL (DUONEB) 0.5 mg-3 mg(2.5 mg base)/3 mL nebulizer solution 3 mL, 3 mL, Inhalation, Q4H, Pete Morgan MD, 3 mL at 08/19/23 1120 ipratropium-albuteroL (DUONEB) 0.5 mg-3 mg(2.5 mg base)/3 mL nebulizer solution 3 mL, 3 mL, Inhalation, Q4HPRN, Pete Morgan MD montelukast (SINGULAIR) tablet 10 mg, 10 mg, Oral, DAILY, Pete Morgan MD, 10 mg at 08/19/23 1117 predniSONE (DELTASONE) tablet 40 mg, 40 mg, Oral, DAILY, Dawson Peters MD, 40 mg at 08/19/23 0923 traMADoL (ULTRAM) tablet 50 mg, 50 mg, Oral, Q8HPRN, Dawson Peters MD Objective: Vitals: Vitals: 08/19/23 0927 08/19/23 1117 08/19/23 1120 08/19/23 1132 BP: 108/66 Pulse: 78 Resp: 17 18 18 Temp: 36.7 ?C (98 ?F) TempSrc: SpO2: 94% 96% 99% Weight: 80.5 kg (177 lb 6.4 oz) Height: 1.575 m (5' 2") I/O's: No intake or output data in the 24 hours ending 08/19/23 1107 Physical Exam: Constitutional: A&O x3, obese and in no distress. Head: Normocephalic and atraumatic. Eyes: PERRL. Conjunctivae and EOM are normal. Neck: Normal range of motion. Neck supple. No JVD present. Cardiovascular: Normal rate, regular rhythm, normal heart sounds Pulmonary/Chest: Effort normal. No respiratory distress. Bilateral expiratory wheezes L >R, no rales or rhonchi. Abdominal: Soft. Bowel sounds are normal. No TTP, non-distended and no masses. No rebound or guarding. Musculoskeletal: Normal range of motion. No edema or tenderness. Lymphadenopathy: No cervical adenopathy. Neurological: A&O x3. No focal deficits. Skin: Skin is warm and dry. No rash noted. No erythema. No pallor. Labs: BMP:BMP NA (mmol/L) Date Value 08/19/2023 137 04/14/2023 136 11/20/2022 136 08/08/2022 136 11/06/2016 142 K (mmol/L) Date Value 08/19/2023 3.8 04/14/2023 4.1 11/20/2022 4.3 08/08/2022 3.8 11/06/2016 4.3 CALCIUM (mg/dL) Date Value 08/19/2023 9.0 04/14/2023 8.9 11/20/2022 8.7 08/08/2022 8.8 11/06/2016 9.9 CL (mmol/L) Date Value 08/19/2023 104 04/14/2023 101 11/20/2022 105 08/08/2022 101 11/06/2016 102 BUN (mg/dL) Date Value 08/19/2023 13 04/14/2023 9 11/20/2022 9 08/08/2022 13 11/06/2016 9 CREATININE (mg/dL) Date Value 08/19/2023 0.64 04/14/2023 0.60 11/20/2022 0.73 08/08/2022 0.66 11/06/2016 0.60 GLUCOSE (mg/dL) Date Value 08/19/2023 152 (H) 04/14/2023 102 11/20/2022 96 08/08/2022 102 11/06/2016 96 CO2 TOTAL (mmol/L) Date Value 08/19/2023 21 (L) 04/14/2023 21 (L) 11/20/2022 27 08/08/2022 23 11/06/2016 27 CBC:CBC WBC (10*3/?L) Date Value 08/19/2023 10.37 RBC (10*6/?L) Date Value 08/19/2023 4.95 PLT (10*3/?L) Date Value 08/19/2023 174 HGB (g/dL) Date Value 08/19/2023 13.5 HCT (%) Date Value 08/19/2023 37.0 BMP:Hepatic Function Panel ALBUMIN (g/dL) Date Value 08/19/2023 4.6 T PROTEIN (g/dL) Date Value 08/19/2023 8.0 TOTAL BILI (mg/dL) Date Value 08/19/2023 0.5 ALT(SGPT) (U/L) Date Value 11/06/2016 25 ALTv (U/L) Date Value 08/19/2023 12 AST(SGOT) (U/L) Date Value 08/19/2023 24 ALK PHOS (U/L) Date Value 08/19/2023 64 Troponin: There are no current results on file for these tests and/or test for 1 year. I have reviewed all relevant labs Imaging: XR CHEST 1 VW Result Date: 08/19/2023 EXAM: XR CHEST 1 VW COMPARISON: Chest radiographs dated 03/23/2023 HISTORY: 23 years old Female with asthma FINDINGS: Lines and tubes: None. Lungs: The lung volumes are normal. No focal opacities. No pleural abnormalities are detected. Heart/Mediastinum: The cardiac silhouette appears normal. Bones and soft tissues: No focal osseous lesions. No acute cardiopulmonary process. Preliminary Report Dictated by Resident: Christopher Hirsch MD., have reviewed this study and agree with the above report. Assessment and plan: Principal Problem: Mild intermittent asthma with exacerbation Active Problems: Obesity (BMI 30-39.9) Acute respiratory failure with hypoxia due to acute exacerbation of moderate persistent asthma: - Continue scheduled Duonebs and prednisone. - Start Singulair and PRN Robitussin DM. - On 2 L NC, wean oxygen as tolerated. - She would benefit from a controller medication, ICS/LABA such as generic Advair (fluticasone/salmeterol) at discharge (Good Rx pride ~$86-88/month at local [facility] and [facility] pharmacy). Depression: - Resume home Lexapro. Obesity: - Continue supportive care. DVT prophylaxis: Lovenox Advanced Care Planning ( Z71.89 ) Above assessment and plan discussed at length with patient, patient expressed full understanding. Questions and concerns addressed I spent 18 minutes discussing the advance care planning. Advanced Directive Maker: Self Level of comfort: N/A Code Status: Full code Non-tobacco user (Z71.6) Disposition: Home [facility]
[2024-09-05] MEDS ORDERED: predniSONE 20 MG TAB ONE (04:56)
[2024-09-05] MEDS ORDERED: IPRATROPIUM BROM 0.5MG/2.5ML ONE (04:56)
[2024-09-05] MEDS ORDERED: ALBUTEROL 2.5 MG/3 ML NEB SOL ONE (04:56)
[2024-09-05] MEDS ORDERED: ONDANSETRON 4 MG (ODT) TAB ONE (05:59)
[2024-09-05] MEDS ORDERED: AZITHROMYCIN 250 MG TAB ONE (05:59)
[2024-09-05] MEDS ORDERED: LEVALBUTEROL 1.25 MG/3 ML NEB ONE (06:21)
--- NOTE | 2024-09-05 06:30 | RAD REPORT ---
EXAM: XR CHEST 1 VIEW HISTORY: 24 years Female SOB COMPARISON: None. FINDINGS: LUNGS/PLEURA: The lungs are clear. No pleural effusions or pneumothorax. No pulmonary edema. MEDIASTINUM: The mediastinal silhouette is within normal limits. CARDIAC: The cardiac silhouette is within normal limits. UPPER ABDOMEN: No significant abnormality. BONES: No acute abnormality. LINES/TUBES/OTHER: N/A IMPRESSION: No evidence of acute cardiopulmonary disease. Electronically signed by: Juan Mann MD 09/05/2024 06:25 AM [facility] Due to temporary technical issues with the PACS/[employer] reporting system, reports are being todd d by the in-house radiologist without review as a courtesy to ensure prompt reporting the interpreting radiologist is fully responsible for the content of the report. Transcribed Date/Time: 09/05/2024 6:29 AM
--- NOTE | 2024-09-05 06:51 | EDPHYS ---
Physician Documentation [facility] Name: Barb Perla Age: 24 yrs Sex: Female : 2000 Arrival Date: 09/05/2024 Time: 04:29 Bed 15 Private MD: ED Physician Haresh Michael HPI: 09/05 04:50 This 24 yrs old Female presents to ER via Ambulatory with complaints of Asthma cp Exacerbation. 04:50 The patient presents to the emergency department with wheezing, that began without any cp particular precipitating event, the patient was reported to have shortness of breath, chills. 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 - Infectious Disease History:: Denies. - Social history:: Smoking status: Patient denies any tobacco usage or history of. ROS: 04:55 Constitutional: Positive for chills, Negative for body aches, fever, cp 04:55 Respiratory: Positive for shortness of breath, at rest. wheezing, cp 04:55 Abdomen/GI: Positive for nausea, Negative for vomiting, diarrhea, constipation, 04:55 Eyes: Negative for injury, pain, redness, and discharge, cp 04:55 ENT: Negative for drainage from ear(s), ear pain, sore throat, cp 04:55 Cardiovascular: Negative for chest pain, 04:55 Neuro: Negative for altered mental status, dizziness, headache, weakness, 04:55 All other systems are negative, Exam: 05:00 Constitutional: The patient appears in no acute distress, alert, awake, non-toxic, well cp developed, well nourished, 05:00 Head/Face: Normocephalic, atraumatic. cp 05:00 Eyes: Periorbital structures: appear normal, Conjunctiva: normal, no exudate, no injection, Sclera: no appreciated abnormality, Lids and lashes: appear normal, bilaterally, 05:00 ENT: External ear(s): are unremarkable, Nose: is normal, Mouth: Lips: moist, Oral mucosa: moist, Posterior pharynx: Airway: no evidence of obstruction, patent, erythema, is not appreciated, exudate, is not appreciated, 05:00 Neck: ROM/movement: is normal, is supple, without pain, no range of motions limitations, 05:00 Chest/axilla: Inspection: normal, 05:00 Cardiovascular: Rate: normal, 05:00 Respiratory: the patient does not display signs of respiratory distress, Respirations: normal, no use of accessory muscles, no retractions, Breath sounds: decreased breath sounds, that are mild, throughout, stridor, is not appreciated, wheezing: that is mild, is heard diffusely, 05:00 Abdomen/GI: Exam negative for discomfort, distension, guarding, Inspection: abdomen appears normal, 05:00 Neuro: Orientation: to person, place \T\ time. Mentation: is normal, Vital Signs: 04:37 BP 135 / 88; Pulse 81; Resp 19 S; Temp 98.5(O); Pulse Ox 97% on R/A; Weight 77.11 kg; ha1 Height 5 ft. 2 in. ; 04:55 BP 121 / 84; Pulse 79; Resp 18; Pulse Ox 97% on R/A; rg5 05:00 BP 129 / 79; Pulse 75; Resp 18; Pulse Ox 100% on R/A; rg5 06:16 BP 130 / 68; Pulse 75; Resp 18; Temp 98; Pulse Ox 100% on R/A; Pain 0/10; rg5 04:37 Body Mass Index 31.09 (77.11 kg, 157.48 cm) ha1 06:16 Pain Scale: Adult rg5 MDM: 05:10 Medical Screening Exam initiated rosalina 09/05 04:45 Order name: Urinalysis w/ reflexes cp 09/05 04:45 Order name: Test, Urine 09/05 04:45 Order name: SARS RAPID cp 09/05 04:45 Order name: Influenza Screen (a \T\ B) cp 09/05 04:45 Order name: RSV cp 09/05 04:45 Order name: XRAY Chest (1 view) cp Administered Medications: 05:00 Drug: DuoNeb Nebulize (2.5 mg - 0.5 mg) 3 ml Nebulizer once Route: Nebulizer; rg5 05:30 Follow up: Response: No adverse reaction rg5 05:00 Drug: predniSONE PO 60 mg PO once Route: PO; rg5 05:30 Follow up: Response: No adverse reaction rg5 06:00 Drug: Ondansetron PO 4 mg PO once Route: PO; rg5 06:13 Follow up: Response: No adverse reaction rg5 06:00 Drug: AZITHromycin PO 500 mg PO once Route: PO; rg5 06:13 Follow up: Response: No adverse reaction rg5 06:28 Drug: Levalbuterol Inhalation 1.25 mg Inhalation once Route: Inhalation; rg5 Disposition Summary: 09/05/24 06:50 Discharge Ordered Notes: Location: Home [place] Problem: an acute exacerbation rosalina Symptoms: have improved rosalina Condition: Stable ro[place] Diagnosis - Unspecified asthma with (acute) exacerbation rosalina Followup: cp - With: Private Physician - When: 2 - 3 days - Reason: Worsening of condition Discharge Instructions: - Discharge Summary Sheet cp - Asthma, Adult cp Forms: - Medication Reconciliation Form rosalina - Antibiotic Education rosalina - Prescription Opioid Use rosalina - Patient Portal Instructions [facility] - Leadership Thank You Letter [facility] Prescriptions: - Zithromax Z-Koby 250 mg Oral Tablet - take 1 tablet ORAL route as directed for 5 days Day 1 - take two (2) tablets [facility] one time. Day 2, 3, 4 , 5 take one (1) tablet once daily.; 6 tablet; Refills: 0, Product Selection Permitted - albuterol sulfate 90 mcg/actuation Inhalation HFA Aerosol Inhaler - inhale 1 puff INHALATION route every 4 to 6 hours as needed for bronchospasm; cp administer via ventilator; 1 unit; Refills: 0, Product Selection Permitted - Prednisone 20 mg Oral Tablet - take 2 tablets ORAL route once daily for 5 days; 10 tablet; Refills: 0, Product cp Selection Permitted - Albuterol Sulfate 2.5 mg /3 mL (0.083 %) Inhalation Solution for Nebulization - inhale 1 unit NEBULIZATION route every 8 hours As needed; 90 unit; Refills: 0, rt Product Selection Permitted Signatures: Dispatcher [employer] EDMS Haresh Michael MD MD cha Page, Corey, PA PA cp Ayala, Heidy, RN RN ha1 Keith Wright RN RN rg5 Corrections: (The following items were deleted from the chart) 05:09 04:50 The patient presents to the emergency department with wheezing, that began cp without any particular precipitating event, the patient was reported to have shortness of breath, cp
--- NOTE | 2024-09-05 06:51 | ER ---
Nurse's Notes [facility] Name: Barb Perla Age: 24 yrs Sex: Female : 2000 Arrival Date: 09/05/2024 Time: 04:29 Bed 15 Private MD: Diagnosis: Unspecified asthma with (acute) exacerbation Presentation: 09/05 04:37 Chief complaint: Patient states: ASTHMA EXACERBATION, BODY CHILLS. ha1 04:37 Coronavirus screen: Client denies travel out of the [place] in the last 14 days. Ebola ha1 Screen: No symptoms or risks identified at this time. Initial Sepsis Screen: Does the patient meet any 2 criteria? No. Patient's initial sepsis screen is negative. Does the patient have a suspected source of infection? No. Patient's initial sepsis screen is negative. Risk Assessment: Do you want to hurt yourself or someone else? Patient reports no desire to harm self or others. Onset of symptoms was September 05, 2024. 04:37 Method Of Arrival: Ambulatory ha1 04:37 Acuity: DRAKE 4 ha1 Triage Assessment: 04:37 General: Appears comfortable, Behavior is calm, cooperative. Pain: Denies pain. Neuro: ha1 Level of Consciousness is awake, alert, obeys commands, Oriented to person, place, time, situation. Cardiovascular: Capillary refill < 3 seconds Patient's skin is warm and dry. Respiratory: Airway is patent Respiratory effort is even, unlabored, Respiratory pattern is regular, symmetrical. GI: Abdomen is round non-distended. 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 - Infectious Disease History:: Denies. - Social history:: Smoking status: Patient denies any tobacco usage or history of. Screenin:[facility] ED Fall Risk Assessment (Adult) History of falling in the last 3 months, ha1 including since admission No falls in past 3 months (0 pts) Confusion or Disorientation No (0 pts) Intoxicated or Sedated No (0 pts) Impaired Gait No (0 pts) Mobility Assist Device Used No (0 pt) Altered Elimination No (0 pt) Score/Fall Risk Level 0 - 2 = Low Risk Oriented to surroundings, Maintained a safe environment, Educated pt \T\ family on fall prevention, incl call for assistance when getting out of bed, Hourly rounding (assess needs \T\ fall precautionary measures) done. Abuse screen: Denies threats or abuse. Denies injuries from another. Nutritional screening: No deficits noted. Tuberculosis screening: No symptoms or risk factors identified. Assessment: 05:03 General: Appears in no apparent distress. comfortable, Behavior is calm, cooperative, rg5 appropriate for age. Pain: Denies pain. Neuro: Level of Consciousness is awake, alert, obeys commands, Oriented to person, place, time. Cardiovascular: Denies chest pain, Patient's skin is warm and dry. Respiratory: Reports shortness of breath at rest Airway is patent Trachea midline Respiratory effort is even, unlabored, Respiratory pattern is regular, symmetrical, Breath sounds with wheezes. GI: Abdomen is round non-distended, Abd is soft and non tender. : No signs and/or symptoms were reported regarding the genitourinary system. EENT: No deficits noted. Derm: Skin is intact, Skin is dry, Skin is normal, Skin temperature is warm. Musculoskeletal: Circulation, motion, and sensation intact. Range of motion: intact in all extremities. 06:37 Reassessment: Patient and/or family updated on plan of care and expected duration. Pain rg5 level reassessed. Patient is alert, oriented x 3, equal unlabored respirations, skin warm/dry/pink. Patient states feeling better. Vital Signs: 04:37 BP 135 / 88; Pulse 81; Resp 19 S; Temp 98.5(O); Pulse Ox 97% on R/A; Weight 77.11 kg; ha1 Height 5 ft. 2 in. ; 04:55 BP 121 / 84; Pulse 79; Resp 18; Pulse Ox 97% on R/A; rg5 05:00 BP 129 / 79; Pulse 75; Resp 18; Pulse Ox 100% on R/A; rg5 06:16 BP 130 / 68; Pulse 75; Resp 18; Temp 98; Pulse Ox 100% on R/A; Pain 0/10; rg5 04:37 Body Mass Index 31.09 (77.11 kg, 157.48 cm) ha1 06:16 Pain Scale: Adult rg5 ED Course: 04:32 Patient arrived in ED. jj6 04:33 Haresh Knapp PA is PHCP. cp 04:33 Haresh Michael MD is Attending Physician. cp 04:50 Triage completed. ha1 04:54 Keith Wright, RN is Primary Nurse. rg5 04:55 Arm band placed on right wrist. rg5 05:03 Patient has correct armband on for positive identification. Door closed. Noise rg5 minimized. Verbal reassurance given. 05:03 No provider procedures requiring assistance completed. rg5 05:14 XRAY Chest (1 view) In Process Unspecified. EDMS 07:13 Provided Education on: discharge. ko1 07:13 Patient did not have IV access during this emergency room visit. ko1 Administered Medications: 05:00 Drug: DuoNeb Nebulize (2.5 mg - 0.5 mg) 3 ml Nebulizer once Route: Nebulizer; rg5 05:30 Follow up: Response: No adverse reaction rg5 05:00 Drug: predniSONE PO 60 mg PO once Route: PO; rg5 05:30 Follow up: Response: No adverse reaction rg5 06:00 Drug: Ondansetron PO 4 mg PO once Route: PO; rg5 06:13 Follow up: Response: No adverse reaction rg5 06:00 Drug: AZITHromycin PO 500 mg PO once Route: PO; rg5 06:13 Follow up: Response: No adverse reaction rg5 06:28 Drug: Levalbuterol Inhalation 1.25 mg Inhalation once Route: Inhalation; rg5 Medication: 05:03 VIS not applicable for this client. rg5 Outcome: 06:50 Discharge ordered by . rosalina 07:18 Discharged to home ambulatory, with family, bp 07:18 Condition: stable 07:18 Discharge instructions given to patient, Instructed on discharge instructions, follow up and referral plans. medication usage, Demonstrated understanding of instructions, follow-up care, medications, Prescriptions given X 3, 07:21 Patient left the ED. bp Signatures: Dispatcher [employer] EDME Haresh Michael MD MD cha Page, Corey, PA PA Aj Palomino, RN RN bp Bruna Stewart [id number] Gloria Uribe RN RN ha1 Noemí Marquez RN RN ko1 Keith Wright, RN RN rg5
[2024-09-05 06:56] LABS: Specific Gravity 1.018 (1.005-1.030)
[2024-09-05 06:59] LABS: Specific Gravity 1.018 (1.005-1.030); Transitional Epithelial <5 /HPF (None Seen); Urine Bacteria None Seen /HPF (<20); Urine Bilirubin NEGATIVE (Negative); Urine Blood Negative (Negative); Urine Clarity Turbid (Clear); Urine Color Light-Yellow (Yellow); Urine Culture Reflex Order NOT NEEDED; Urine Glucose NEGATIVE (Negative); Urine Ketones NEGATIVE (Negative); Urine Microscopic Reflex YN ORDER UMIC; Urine Mucus Slight /HPF (None Seen); Urine Nitrite NEGATIVE (Negative); Urine Protein NEGATIVE (Negative); Urine RBC <5 /HPF (None Seen); Urine Urobilinogen Normal (Normal); Urine pH 5.5 (5.0-7.0)
[2024-09-05 06:59] LABS: SARS-CoV-2 Antigen CONTROL BLUE LINE VIS/BG OK; SARS-CoV-2 Antigen Rapid Res Negative (Negative)
[2024-09-05 07:28] VITALS: O2SAT 100
[2024-09-05 07:30] VITALS: BP 130/68; TEMP 98
== END 2024-09-05 07:21 | disposition home or self-care (01) ==
LOC: ER 04:29
DX: J45.901 Unspecified asthma with (acute) exacerbation (principal); Z11.52 Encounter for screening for COVID-19
CPT/HCPCS: 36415; 71045; 81001; 81025; 87804; 87807; 87811; 99284; J7512; J7613; J7614; J7644; Q0162

== ENCOUNTER 2024-11-29 13:39 | Emergency (ER) | payer SELFPAY ==
--- OUTSIDE RECORDS SUMMARY | 2024-11-29 13:45 | XMS REPORT | Continuity of Care Document ---
Author Name Unknown Address [address] [place] [address] Organization [facility] Address [address] [place] [address] Care Team Providers Care Transfer Professor Name Role Phone PCP, PATIENT DOES NOT HAVE A Primary Care Physic dale Unavailable Caroline PACK Attending Clinician Unavailable Caroline PACK Attending Clinician Unavailable Caroline Valdivia Attending Clinician [phone] Heri Luis MD Attending Clinician [phone] LAUREN YODER Attending Clinician UnavailLauren Medina DO Attending Clinician [phone] FEDERICA RESENDEZ Attending Clinician Unavailable Federica Palma Attending Clinician [phone] Janki Oscar LVN Attending Clinician [phone] DAWSON PETERS Attending Clinician Unavailable DAWSON PETERS Attending Clinician Unavailable Mane Duarte DO Attending Clinician +[phone] SRI ROJAS Attending Clinician Unav Sri Hinton MD Attending Clinician + CHRISTINE ORTEGA Attending Clinician Unavailable Christine Hong S Attending Clinician [phone] JOLENE GAMEZ Attending Clinician Unavailable Jolene Gamez NP Attending Clinician [phone] Edgar Orona MD Attending Clinician [phone] EDGAR ORONA Attending Clinician Unavailable DAWSON PETERS Admitting Clinician Unavailable SRI ROJAS Admitting Clinician UnaCHRISTINE Alcantar Admitting Clinician Unavailable JOLENE GAMEZ Admitting Clinician Unavailable Payers Payer Name Policy Type Policy Number Effective Date Expirati on Date Source Problems Condition Name Condition Details Condition Category Status Onset Date Resolution Date Last Treatment Date Treating Clinician Comments Source Mild intermitte nt asthma with exacerbati on Mild intermitte nt asthma with exacerbati on Disease Active 08-19 00:00: 00 [facility] Obesity (BMI 30-39.9) Obesity (BMI 30-39.9) Disease Active 08-19 00:00: 00 [facility] Vitamin D deficiency Vitamin D deficiency Disease Active 11-10 00:00: 00 [facility] Mild persistent asthma without complicati on Mild persistent asthma without complicati on Disease Active 10-02 00:00: 00 [facility] Perennial allergic rhinitis, unspecifie d allergic rhinitis trigger Perennial allergic rhinitis, unspecifie d allergic rhinitis trigger Disease Active 10-02 00:00: 00 [facility] Allergies, Adverse Reactions, Alerts Allergy Name Allergy Type Status Severity Reaction(s) Onset Date Inactive Date Treating Clinician Comments Source NO KNOWN ALLERGIE S Drug Class Active [facility] Social History Social Habit Start Date Stop Date Quantity Comments Source Gender identity [facility] Sexual orientation [facility] History of tobacco use Passive smoker [facility] Alcoholic beverage intake 2024-03-15 00:00:00 2024-03-15 00:00:00 0 /d [facility] Alcohol intake 2023-08-22 00:00:00 2023-08-22 00:00:00 0 /d [facility] Tobacco use and exposure 2023-08-19 00:00:00 2023-08-19 00:00:00 Smokeless tobacco non-user [facility] History of Social function 2023-08-19 00:00:00 2023-08-19 00:00:00 [facility] Exposure to SARS-CoV-2 (event) 2022-11-10 00:00:00 2022-11-20 08:54:00 Not sure [facility] Sex assigned at 2001 00:00:00 2000 00:00:00 [facility] Smoking Status Start Date Stop Date Source Never smoked tobacco [facility] Medications Ordered Medication Name Filled Medication Name Start Date Stop Date Current Medication? Ordering Clinician Indication Dosage Frequency Signature (SIG) Comments Components Source ipratropium -albuteroL (DUONEB) 0.5 mg-3 mg(2.5 mg base)/3 mL nebulizer solution 3 mL 03-15 22:15: 00 03-15 21:27 :00 No 3mL 3 mL, Inhalation , ONCE, 1 dose, On Thu03/15/24 at 1715, Routine [facility] predniSONE (DELTASONE) tablet 50 mg 03-15 22:00: 00 03-15 21:25 :00 No 50mg 50 mg, Oral, ONCE, 1 dose, On Thu03/15/24 at 1700, Routine [facility] albuterol 90 mcg/actuati on inhaler 03-15 00:00: 00 Yes [id number] 2{puff} Inhale 2 Puffs every 4 (four) hours as needed for Wheezing or Shortness of Breath. [facility] ipratropium -albuteroL (DUONEB) 0.5 mg-3 mg(2.5 mg base)/3 mL nebulizer solution 3 mL 02-14 17:00: 00 Yes 3mL 3 mL, Inhalation , QID, First dose on Thu02/15/24 at 1200, Until Discontinu ed, Routine [facility] methylPREDN ISolone sod succ (SOLU-MEDRO L (PF)) injection 40 mg 02-14 15:30: 00 02-14 15:30 :00 No 40mg 40 mg, Intravenou s, ONCE, 1 dose, On Thu02/15/24 at 1030, NILO [facility] albuterol 90 mcg/actuati on inhaler 02-14 00:00: 00 Yes [id number] 2{puff} Inhale 2 Puffs every 4 (four) hours as needed for Wheezing or Shortness of Breath. [facility] albuterol 2.5 mg /3 mL (0.083 %) nebulizer solution 02-14 00:00: 00 Yes [id number] 2.5mg Inhale 3 mL every 4 (four) hours as needed for Wheezing or Shortness of Breath. [facility] ipratropium -albuteroL (DUONEB) 0.5 mg-3 mg(2.5 mg base)/3 mL nebulizer solution 3 mL 12-31 16:45: 00 12-31 16:05 :00 No 3mL 3 mL, Inhalation , ONCE, 1 dose, On Thu01/01/24 at 1145, Routine [facility] dexamethaso ne sod phos PF injection 10 mg 12-31 15:45: 00 12-31 15:53 :00 No 10mg 10 mg, Oral, ONCE, 1 dose, On Thu01/01/24 at 1045, 1 mL [facility] albuterol 90 mcg/actuati on inhaler 12-31 00:00: 00 02-14 00:00 :00 No [id number] 2{puff} Inhale 2 Puffs every 4 (four) hours as needed for Wheezing or Shortness of Breath. [facility] predniSONE 10 mg tablet 12-31 00:00: 00 01-05 04:59 :00 No [id number] 30mg Take 3 tablets by mouth in the morning for 4 days. [facility] albuterol (PROVENTIL) 2.5 mg /3 mL (0.083 %) nebulizer solution 7.5 mg 10-27 13:45: 00 10-27 12:36 :00 No 7.5mg 7.5 mg, Inhalation , ONCE, 1 dose, On Thu10/28/23 at 0845, STAT [facility] albuterol 90 mcg/actuati on inhaler 2024-0 4-03 00:00: 00 02-14 00:00 :00 No [id number] 2{puff} Inhale 2 Puffs every 4 (four) hours as needed for Wheezing or Shortness of Breath. [facility] montelukast 10 mg tablet 08-21 00:00: 00 Yes [id number] 10mg Take 1 tablet by mouth in the morning. [facility] budesonide- formoteroL (SYMBICORT) 160-4.5 mcg/actuati on inhaler 2 Puff 08-20 17:45: 00 Yes 2{puff} 2 Puff, Inhalation , BID, First dose (after last modificati on) on Thu08/20/23 at 1145, Until Discontinu ed, Routine [facility] escitalopra m oxalate (LEXAPRO) 5 mg tablet 08-20 13:36: 40 Yes 5mg Take 1 tablet by mouth in the morning. [facility] budesonide- formoteroL 160-4.5 mcg/actuati on inhaler 08-20 00:00: 00 Yes [id number] 2{puff} Inhale 2 Puffs in the morning and 2 Puffs in the evening. [facility] dextrometho rphan-guaif enesin 10-100 mg/5 mL solution 08-20 00:00: 00 Yes [id number] 10mL Take 10 mL by mouth every 6 (six) hours as needed for Cough. [facility] methylPREDN ISolone 4 mg tablets 08-20 00:00: 00 Yes [id number] Take by mouth SEE-INSTRU CTIONS. follow package directions [facility] enoxaparin (LOVENOX) injection 40 mg 08-19 23:00: 00 Yes 40mg 40 mg, Subcutaneo us, DAILY, First dose on Thu08/19/23 at 1700, Until Discontinu ed, Routine [facility] ipratropium -albuteroL (DUONEB) 0.5 mg-3 mg(2.5 mg base)/3 mL nebulizer solution 3 mL 08-19 18:00: 00 Yes 3mL 3 mL, Inhalation , Q4H, First dose (after last modificati on) on Thu08/19/23 at 1200, Until Discontinu ed, Routine [facility] escitalopra m oxalate (LEXAPRO) tablet 5 mg 08-19 17:30: 00 Yes 5mg 5 mg, Oral, DAILY, First dose on Thu08/19/23 at 1130, Until Discontinu ed, Routine [facility] montelukast (SINGULAIR) tablet 10 mg 08-19 17:00: 00 Yes 10mg 10 mg, Oral, DAILY, First dose on Thu08/19/23 at 1100, Until Discontinu ed, Routine [facility] dextrometho rphan-guaif enesin (ROBITUSSIN DM) 10-100 mg/5 mL solution 10 mL 08-19 16:49: 59 Yes 10mL 10 mL, Oral, Q6HPRN, Starting on Thu08/19/23 at 1049, Until Discontinu ed, Routine, Cough [facility] ipratropium -albuteroL (DUONEB) 0.5 mg-3 mg(2.5 mg base)/3 mL nebulizer solution 3 mL 08-19 16:49: 43 Yes 3mL 3 mL, Inhalation , Q4HPRN, Starting on Thu08/19/23 at 1049, Until Discontinu ed, Routine, Wheezing [facility] predniSONE (DELTASONE) tablet 40 mg 08-19 15:00: 00 08-24 14:59 :00 No 40mg 40 mg, Oral, DAILY, 5 doses, First dose on Thu08/19/23 at 0900, Last dose on Thu08/23/23 at 0900, Routine [facility] ipratropium -albuteroL (DUONEB) 0.5 mg-3 mg(2.5 mg base)/3 mL nebulizer solution 3 mL 08-19 14:00: 00 08-19 16:50 :22 No 3mL 3 mL, Inhalation , QID, First dose on Thu08/19/23 at 0800, Until Discontinu ed, Routine [facility] traMADoL (ULTRAM) tablet 50 mg 08-19 12:41: 39 08-21 12:40 :39 No 50mg 50 mg, Oral, Q8HPRN, Starting on Thu08/19/23 at 0641, Until Thu08/21/23 at 0640, Routine, Pain (scale 4-6) [facility] acetaminoph en (TYLENOL) tablet 650 mg 08-19 12:41: 37 Yes 650mg 650 mg, Oral, Q6HPRN, Starting on Thu08/19/23 at 0641, Until Discontinu ed, Routine, Pain (scale 1-3) [facility] ipratropium -albuteroL (DUONEB) 0.5 mg-3 mg(2.5 mg base)/3 mL nebulizer solution 3 mL 08-19 12:15: 00 08-19 11:13 :00 No 3mL 3 mL, Inhalation , ONCE, 1 dose, On Thu08/19/23 at 0615, Routine [facility] magnesium sulfate in water 2 gram/50 mL (4 %) infusion 2 g 08-19 12:00: 00 08-19 12:43 :00 No 2g 2 g, IV Piggyback, Administer over 60 Minutes, ONCE, 1 dose, On Thu08/19/23 at 0600, Routine [facility] NaCl 0.9% (NS) bolus infusion 1,000 mL 08-19 11:45: 00 08-19 13:00 :00 No 1000mL at 999 mL/hr, 1,000 mL, IV Infusion, ONCE, 1 dose, On Thu08/19/23 at 0545, NILO [facility] methylpredn isolone sod succ (SOLU-MEDRO L) injection 125 mg 08-19 11:45: 00 08-19 11:12 :00 No 125mg 125 mg, Intravenou s, ONCE, 1 dose, On Thu08/19/23 at 0545, 2 mL [facility] ipratropium -albuteroL (DUONEB) 0.5 mg-3 mg(2.5 mg base)/3 mL nebulizer solution 3 mL 2022-07 18:00: 00 05-08 18:47 :00 No 3mL 3 mL, Inhalation , ONCE, 1 dose, On Thu05/08/23 at 1300, Routine [facility] methylpredn isolone sod succ (SOLU-MEDRO L) injection 125 mg 2022-07 18:00: 00 05-08 18:44 :00 No 125mg 125 mg, Intramuscu lar, ONCE, 1 dose, On Thu05/08/23 at 1300, NILO [facility] predniSONE 20 mg tablet 2022-07 00:00: 00 Yes [id number] 1 PO BID x 4 days [facility] albuterol 90 mcg/actuati on inhaler 2022-07 00:00: 00 Yes [id number] 2{puff} Inhale 2 Puffs every 4 (four) hours as needed for Wheezing or Shortness of Breath. [facility] albuterol 2.5 mg /3 mL (0.083 %) nebulizer solution 04-14 00:00: 00 Yes [id number] 2.5mg Inhale 3 mL every 4 (four) hours as needed for Wheezing or Shortness of Breath. [facility] predniSONE 20 mg tablet 04-14 00:00: 00 Yes [id number] 1 PO BID x 4 days [facility] albuterol 90 mcg/actuati on inhaler 04-14 00:00: 00 10-27 00:00 :00 No [id number] 2{puff} Inhale 2 Puffs every 4 (four) hours as needed for Wheezing or Shortness of Breath. [facility] iopamidol (ISOVUE 370-500 mL) injection 75 mL 11-20 17:00: 00 11-20 17:15 :00 No [id number] 75mL 75 mL, Intravenou s, ONCE, 1 dose, On Thu11/20/22 at 1200, Routine [facility] NaCl 0.9% (NS) bolus infusion 1,000 mL 11-20 16:00: 00 11-20 17:19 :00 No 1000mL at 999 mL/hr, 1,000 mL, IV Infusion, ONCE, 1 dose, On Aarti 11/20/22 at 1100, STAT [facility] acetaminoph en (TYLENOL) tablet 1,000 mg 11-20 16:00: 00 11-20 14:58 :00 No 1000mg 1,000 mg, Oral, ONCE, 1 dose, On Aarti 11/20/22 at 1100, Routine [facility] ondansetron (ZOFRAN (PF)) injection 4 mg 11-20 15:00: 00 11-20 14:56 :00 No 4mg 4 mg, Slow IV Push, ONCE, 1 dose, On [facility] 11/20/22 at 1000, NILO [facility] ondansetron 4 mg disintegrat ing tablet 11-20 00:00: 00 08-19 00:00 :00 No [id number] 4mg Take 1 tablet by mouth every 8 (eight) hours as needed for Nausea and Vomiting (N/V). [facility] NaCl 0.9% (NS) bolus infusion 1,000 mL 08-08 20:15: 00 08-08 21:12 :00 No 1000mL at 999 mL/hr, 1,000 mL, IV Piggyback, ONCE, 1 dose, On Thu08/08/22 at 1415, STAT [facility] NaCl 0.9% (NS) IV infusion 1,000 mL 08-08 18:45: 00 08-08 21:12 :00 No 1000mL at 999 mL/hr, Intravenou s, ONCE, 1 dose, On Thu08/08/22 at 1245, NILO [facility] iopamidol (ISOVUE 370-500 mL) injection 84 mL 08-08 17:00: 00 08-08 15:56 :00 No [id number] 84mL 84 mL, Intravenou s, ONCE, 1 dose, On Thu08/08/22 at 1100, Routine [facility] dicyclomine (BENTYL) injection 20 mg 08-08 16:30: 00 08-08 16:01 :00 No 20mg 20 mg, Intramuscu lar, ONCE, 1 dose, On Thu08/08/22 at 1030, Routine [facility] amoxicillin -clavulanat e 875-125 mg per tablet 08-08 00:00: 00 08-19 00:00 :00 No [id number] 1{tbl} Take 1 tablet by mouth every 12 (twelve) hours. [facility] dicyclomine 20 mg tablet 08-08 00:00: 00 08-19 00:00 :00 No [id number] 20mg Take 1 tablet by mouth 4 (four) times daily as needed for Abdominal pain. [facility] clindamycin (CLEOCIN) injection 600 mg 03-04 02:30: 00 03-04 02:30 :00 No 600mg 600 mg, Intramuscu lar, ONCE, 1 dose, On Thu03/03/22 at 2130, NILO
Re ason for Anti-Infec tive: Documented Infection< br>Documen spring Infection Site: Skin / Soft Tissue
Duration of Therapy: Other (see Comments)< br>Restric spring use approved by: ED PROVIDER [facility] clindamycin 300 mg capsule 03-03 00:00: 00 Yes [id number] 300mg Take 1 capsule by mouth 4 (four) times daily. [facility] ibuprofen 800 mg tablet 03-03 00:00: 00 08-19 00:00 :00 No [id number] 800mg Take 1 tablet by mouth every 8 (eight) hours as needed for Pain (scale 4-6). [facility] ALBUTEROL 2.5 mg /3 mL (0.083 %) nebulizer solution 3-15 00:00: 00 02-14 00:00 :00 No [id number] USE 1 VIAL IN NEBULIZER EVERY 6 HOURS NEEDED FOR SHORTNESS OF BREATH AND WHEEZING [facility] albuterol 90 mcg/actuati on inhaler 12-29 00:00: 00 08-19 00:00 :00 No [id number] 2{puff} Inhale 2 Puffs every 4 (four) hours as needed for Wheezing, Shortness of Breath or Chest tightness. [facility] montelukast 10 mg tablet 12-29 00:00: 00 08-19 00:00 :00 No [id number] 10mg Take 1 tablet by mouth every evening. [facility] Immunizations Ordered Immunization Name Filled Immunization Name Date Status Comments Source Meningococcal Polysaccharide (groups A, C, Y and W-135) conjugate vaccine (MCV4P) 2017-12-29 00:00:00 Completed [facility] HPV9 2017-12-29 00:00:00 Completed [facility] Meningococcal Polysaccharide (groups A, C, Y and W-135) conjugate vaccine (MCV4P) 2017-12-29 00:00:00 Completed [facility] HPV9 2017-12-29 00:00:00 Completed [facility] Meningococcal Polysaccharide (groups A, C, Y and W-135) conjugate vaccine (MCV4P) 2017-12-29 00:00:00 Completed [facility] HPV9 2017-12-29 00:00:00 Completed [facility] Meningococcal Polysaccharide (groups A, C, Y and W-135) conjugate vaccine (MCV4P) 2017-12-29 00:00:00 Completed [facility] HPV9 2017-12-29 00:00:00 Completed [facility] Meningococcal Polysaccharide (groups A, C, Y and W-135) conjugate vaccine (MCV4P) 2017-12-29 00:00:00 Completed [facility] HPV9 2017-12-29 00:00:00 Completed [facility] 2016-11-06 00:00:00 Completed [facility] 2016-11-06 00:00:00 Completed [facility] HPV9 2016-11-06 00:00:00 Completed [facility] 2016-11-06 00:00:00 Completed [facility] 2016-11-06 00:00:00 Completed [facility] HPV9 Unknown Completed [facility] Meningococcal Polysaccharide (groups A, C, Y and W-135) conjugate vaccine (MCV4P) Unknown Completed [facility] HPV9 Unknown Completed [facility] Meningococcal Polysaccharide (groups A, C, Y and W-135) conjugate vaccine (MCV4P) Unknown Completed [facility] HPV9 Unknown Completed [facility] Meningococcal Polysaccharide (groups A, C, Y and W-135) conjugate vaccine (MCV4P) Unknown Completed [facility] HPV9 Unknown Completed [facility] Meningococcal Polysaccharide (groups A, C, Y and W-135) conjugate vaccine (MCV4P) Unknown Completed [facility] HPV9 Unknown Completed [facility] Meningococcal Polysaccharide (groups A, C, Y and W-135) conjugate vaccine (MCV4P) Unknown Completed [facility] HPV9 Unknown Completed [facility] Meningococcal Polysaccharide (groups A, C, Y and W-135) conjugate vaccine (MCV4P) Unknown Completed [facility] HPV9 Unknown Completed [facility] Meningococcal Polysaccharide (groups A, C, Y and W-135) conjugate vaccine (MCV4P) Unknown Completed [facility] Vital Signs Vital Name Observation Time Observation Value Comments S ource Systolic blood pressure 2024-03-15 22:45:00 121 mm[Hg] [facility] Diastolic blood pressure 2024-03-15 22:45:00 70 mm[Hg] [facility] Heart rate 2024-03-15 22:45:00 78 /min [facility] Body temperature 2024-03-15 22:45:00 36.67 Maia [facility] Respiratory rate 2024-03-15 22:45:00 18 /min [facility] Oxygen saturation in Arterial blood by Pulse oximetry 2024-03-15 22:45:00 100 /min [facility] Body height 2024-03-15 21:02:[address] [facility] Body weight 2024-03-15 21:02:[address] [facility] BMI 2024-03-15 21:02:00 31.09 kg/m2 [facility] Systolic blood pressure 2024-02-15 15:30:00 118 mm[Hg] [facility] Diastolic blood pressure 2024-02-15 15:30:00 84 mm[Hg] [facility] Heart rate 2024-02-15 15:30:00 90 /min [facility] Respiratory rate 2024-02-15 15:30:00 17 /min [facility] Oxygen saturation in Arterial blood by Pulse oximetry 2024-02-15 15:30:00 93 /min [facility] Body temperature 2024-02-15 15:19:00 37.11 Maia [facility] Body height 2024-02-15 15:19:[address] [facility] Body weight 2024-02-15 15:19:[address] [facility] BMI 2024-02-15 15:19:00 29.18 kg/m2 [facility] Systolic blood pressure 2024-01-01 17:03:00 119 mm[Hg] [facility] Diastolic blood pressure 2024-01-01 17:03:00 78 mm[Hg] [facility] Heart rate 2024-01-01 17:03:00 74 /min Un[facility] Respiratory rate 2024-01-01 17:03:00 16 /min [facility] Oxygen saturation in Arterial blood by Pulse oximetry 2024-01-01 17:03:00 98 /min [facility] Body temperature 2024-01-01 15:35:00 37.22 Maia [facility] Body height 2024-01-01 15:35:00 157.5 cm [facility] Body weight 2024-01-01 15:35:[address] [facility] BMI 2024-01-01 15:35:00 30.73 kg/m2 [facility] Systolic blood pressure 2023-10-28 15:00:00 113 mm[Hg] [facility] Diastolic blood pressure 2023-10-28 15:00:00 76 mm[Hg] [facility] Heart rate 2023-10-28 15:00:00 105 /min [facility] Respiratory rate 2023-10-28 15:00:00 16 /min [facility] Oxygen saturation in Arterial blood by Pulse oximetry 2023-10-28 15:00:00 96 /min [facility] Body temperature 2023-10-28 12:27:00 37.39 Maia [facility] Body height 2023-10-28 12:27:[address] [facility] Body weight 2023-10-28 12:27:[address] [facility] BMI 2023-10-28 12:27:00 30.91 kg/m2 [facility] Systolic blood pressure 2023-08-20 18:28:00 120 mm[Hg] [facility] Diastolic blood pressure 2023-08-20 18:28:00 78 mm[Hg] [facility] Heart rate 2023-08-20 18:28:00 111 /min Un[facility] Body temperature 2023-08-20 18:28:00 36.56 Maia [facility] Respiratory rate 2023-08-20 18:28:00 16 /min [facility] Oxygen saturation in Arterial blood by Pulse oximetry 2023-08-20 18:28:00 97 /min [facility] Body weight 2023-08-20 09:13:[address] [facility] BMI 2023-08-20 09:13:00 32.45 kg/m2 [facility] Body height 2023-08-19 15:27:[address] [facility] Systolic blood pressure 2023-05-08 20:30:00 120 mm[Hg] [facility] Diastolic blood pressure 2023-05-08 20:30:00 73 mm[Hg] [facility] Heart rate 2023-05-08 20:30:00 72 /min Un[facility] Body temperature 2023-05-08 20:30:00 37.28 Maia [facility] Respiratory rate 2023-05-08 20:30:00 16 /min [facility] Oxygen saturation in Arterial blood by Pulse oximetry 2023-05-08 20:30:00 99 /min [facility] Body height 2023-05-08 16:31:[address] [facility] Body weight 2023-05-08 16:31:[address] [facility] BMI 2023-05-08 16:31:00 31.09 kg/m2 [facility] Oxygen saturation in Arterial blood by Pulse oximetry 2023-03-23 23:03:00 98 /min [facility] Systolic blood pressure 2023-03-23 23:00:00 117 mm[Hg] [facility] Diastolic blood pressure 2023-03-23 23:00:00 75 mm[Hg] [facility] Heart rate 2023-03-23 23:00:00 85 /min Un[facility] Respiratory rate 2023-03-23 23:00:00 16 /min [facility] Body temperature 2023-03-23 22:05:00 36.72 Maia [facility] Body height 2023-03-23 22:05:[address] [facility] Body weight 2023-03-23 22:05:[address] [facility] BMI 2023-03-23 22:05:00 31.09 kg/m2 [facility] Systolic blood pressure 2022-11-20 17:20:00 121 mm[Hg] [facility] Diastolic blood pressure 2022-11-20 17:20:00 78 mm[Hg] [facility] Heart rate 2022-11-20 17:20:00 96 /min [facility] Respiratory rate 2022-11-20 17:20:00 17 /min [facility] Oxygen saturation in Arterial blood by Pulse oximetry 2022-11-20 17:20:00 95 /min [facility] Body temperature 2022-11-20 14:19:00 38.78 Maia [facility] Body weight 2022-11-20 13:52:[address] [facility] BMI 2022-11-20 13:52:00 30.54 kg/m2 [facility] Heart rate 2022-08-08 19:10:07 96 /min [facility] Oxygen saturation in Arterial blood by Pulse oximetry 2022-08-08 19:10:07 97 /min [facility] Systolic blood pressure 2022-08-08 19:00:00 124 mm[Hg] [facility] Diastolic blood pressure 2022-08-08 19:00:00 81 mm[Hg] [facility] Respiratory rate 2022-08-08 19:00:00 15 /min [facility] Body temperature 2022-08-08 14:48:00 37.17 Maia [facility] Body height 2022-08-08 14:48:[address] [facility] Body weight 2022-08-08 14:48:[address] [facility] BMI 2022-08-08 14:48:00 31.83 kg/m2 [facility] Systolic blood pressure 2022-03-04 03:45:00 135 mm[Hg] [facility] Diastolic blood pressure 2022-03-04 03:45:00 80 mm[Hg] [facility] Heart rate 2022-03-04 03:45:00 79 /min [facility] Respiratory rate 2022-03-04 03:45:00 18 /min [facility] Oxygen saturation in Arterial blood by Pulse oximetry 2022-03-04 03:45:00 100 /min [facility] Body temperature 2022-03-04 00:53:00 36.83 Maia [facility] Body height 2022-03-04 00:53:[address] [facility] Body weight 2022-03-04 00:53:[address] [facility] BMI 2022-03-04 00:53:00 34.75 kg/m2 [facility] Procedures Procedure Date / Time Performed Performing Clinicia n Source POCT TEST 2024-03-15 22:31:00 Caroline Pack [facility] BASIC METABOLIC PANEL (NA, K, CL, CO2, GLUCOSE, BUN, CREATININE, CA) 2023-08-20 10:14:00 Pete Morgan [facility] CBC WITH DIFF 2023-08-20 10:14:00 Pete Morgan [facility] CBC WITH DIFF 2023-08-19 11:25:[address] [facility] XR CHEST 1 VW 2023-08-19 11:14:41 Felicia [facility] COMP. METABOLIC PANEL ([id number]) 2023-08-19 11:09:00 [facility] CONSENT/REFUSAL FOR DIAGNOSIS AND TREATMENT 2023-08-19 10:53:04 Doctor Unassigned, [place] [facility] ASSIGNMENT OF BENEFITS 2023-05-08 17:46:50 Docto r Unassigned, [place] [facility] CONSENT/REFUSAL FOR DIAGNOSIS AND TREATMENT 2023-05-08 17:46:10 Doctor Unassigned, [place] [facility] XR CHEST 1 2023-03-23 23:04:08 Sri Rojas [facility] CT ABDOMEN PELVIS W CONTRAST 2022-11-20 17:05:00 Christine Ortega [facility] RAPID INFLUENZA A/B 2022-11-20 15:00:00 Christine Ortega [facility] COVID-19 (ID NOW RAPID TESTING) 2022-11-20 15:00:00 Christine Ortega [facility] LIPASE 2022-11-20 14:26:00 Christine Ortega [facility] COMP. METABOLIC PANEL ([id number]) 2022-11-20 14:26:00 Christine Ortega [facility] CBC WITH DIFF 2022-11-20 14:26:00 [facility] URINALYSIS 2022-11-20 14:26:00 Christine Ortega [facility] POCT TEST 2022-11-20 14:17:00 Christine Ortega [facility] US OVARY TORSION 2022-08-08 19:59:03 Jolene Gamez [facility] CT ABDOMEN PELVIS W CONTRAST 2022-08-08 16:13:53 Jolene Gamez [facility] POCT TEST 2022-08-08 15:11:00 Jolene Gamez [facility] URINALYSIS 2022-08-08 15:08:[address] [facility] LIPASE 2022-08-08 15:06:[address] [facility] COMP. METABOLIC PANEL ([id number]) 2022-08-08 15:06:00 Jolene Gamez [facility] CBC WITH DIFF 2022-08-08 15:06:00 Jolene Gamez [facility] NOTICE OF PRIVACY PRACTICES 2022-03-04 00:43:47 Doctor Unassigned, [place] [facility] CONSENT/REFUSAL FOR DIAGNOSIS AND TREATMENT 2022-03-04 00:43:14 Doctor Unassigned, [place] [facility] Encounters Start Date/Time End Date/Time Encounter Type Admission Type Attending Clinicians Care Facility Care Department Encounter ID Source 2024-03-15 16:05:00 2024-03-15 17:47:00 Emergency X Caroline PACK K [facility] ERT [id number] [facility] 2024-03-15 16:05:00 2024-03-15 17:47:00 Emergency Caroline Pack [facility] 1..840.114 350.1.13.10 4.2.7.2.686 [id number] [facility] 2024-02-15 10:12:00 2024-02-15 10:45:00 Emergency LAUREN SMART [facility] ERT [id number] [facility] 2024-02-15 10:12:00 2024-02-15 10:45:00 Emergency Lauren Yoder [facility] ..840.114 350.1.13.10 4.2.7.2.686 [id number] [facility] 2024-01-01 10:45:00 2024-01-01 12:05:00 Emergency X KEVEN [facility] ERT [id number] [facility] 2024-01-01 10:45:00 2024-01-01 12:05:00 Emergency Keven [facility] 1.2.840.114 350.1.13.10 4.2.7.2.686 [id number] [facility] 2023-10-28 07:24:00 2023-10-28 10:41:00 Emergency X LAUREN YODER [facility] ERT [id number] [facility] 2023-10-28 07:24:00 2023-10-28 10:41:00 Emergency Paresh [facility] 1.2.840.114 350.1.13.10 4.2.7.2.686 [id number] [facility] 2023-08-21 00:00:00 2023-08-21 00:00:00 Transition of Care Janki Oscar 1.2.840.114 350.1.13.10 4.2.7.2.686 [id number] [facility] 2023-08-19 04:54:00 2023-08-20 13:30:00 Inpatient X DAWSON PETERS [facility] KRISTINA [id number] [facility] 2023-08-19 04:54:00 2023-08-20 13:30:00 Hospital Encounter Mane Duarte [facility] 1.2.840.114 350.1.13.10 4.2.7.2.686 [id number] [facility] 2023-05-08 11:41:00 2023-05-08 15:33:00 Emergency X SIRENA, K [facility] ERT [id number] [facility] 2023-05-08 11:41:00 2023-05-08 15:33:00 Emergency Caroline Pack [facility] 1.2.840.114 350.1.13.10 4.2.7.2.686 [id number] [facility] 2023-04-14 15:15:00 2023-04-14 18:50:00 Emergency X Caroline PACK [facility] ERT [id number] [facility] 2023-03-23 16:57:00 2023-03-23 18:37:00 Emergency X SRI ROJAS [facility] ERT [id number] [facility] 2023-03-23 16:57:00 2023-03-23 18:37:00 Emergency Sri Rojas [facility] 1.2.840.114 350.1.13.10 4.2.7.2.686 [id number] [facility] 2022-11-20 08:46:00 2022-11-20 14:07:00 Emergency X SHANNON CHRISTINE [facility] ERT [id number] [facility] 2022-11-20 08:46:00 2022-11-20 14:07:00 Emergency OrtegaChristine S [facility] 1.2.840.114 350.1.13.10 4.2.7.2.686 [id number] [facility] 2022-08-30 14:46:00 2022-08-30 16:06:00 Emergency [facility] 1.2.840.114 350.1.13.10 4.2.7.2.686 [id number] [facility] 2022-08-30 14:46:00 2022-08-30 16:06:00 Emergency X [facility] ERT [id number] [facility] 2022-08-08 08:42:00 2022-08-08 15:16:00 Emergency X JOLENE GAMEZ [facility] ERT [id number] [facility] 2022-08-08 08:42:00 2022-08-08 15:16:00 Emergency Jolene Gamez [facility] 1.2.840.114 350.1.13.10 4.2.7.2.686 [id number] [facility] 2022-03-03 19:59:00 2022-03-03 23:33:00 Emergency Edgar Orona [facility] 1.2.840.114 350.1.13.10 4.2.7.2.686 [id number] [facility] 2022-03-03 19:59:00 2022-03-03 23:33:00 Emergency X EDGAR ORONA [facility] ERT [id number] [facility] Results Test Description Test Time Test Comments Results Result Co mments Source [facility] [id number] 13:43:04EXAM: XR CHEST 1 VW COMPARISON: Chest radiographs dated 03/23/2023 HISTORY: 23 years old Female withasthma FINDINGS:Lines and tubes: None. Lungs: The lung volumes are normal. No focal opacities. No pleuralabnormalities are detected. Heart/Mediastinum: The cardiac silhouette appears normal. Bones and soft tissues: No focal osseous lesions.[facility] [id number] 11:33:03* Test Item Value Reference Range Interpretation Comme nts WBC (test code = 6690-2) 10.37 See_Comment [Automated Orderlord] The system which generated this result transmitted reference range: 4.30 - 11.10 10*3/?L. The reference range was not used to interpret this result as normal/abnormal. RBC (test code = 789-8) 4.95 See_Comment [Automated Orderlord] The system which generated this result transmitted [...] g/dL 31.6-35.1 H RDW-SD (test code = 70394-2) 35.3 fL 39.0-49.9 L RDW-CV (test code = 788-0) 13.3 % 12.0-15.5 PLT (test code = 777-3) 174 See_Comment [Automated messa ge] The system which generated this result transmitted reference range: 166 - 358 10*3/?L. The reference range was not used to interpret this result as normal/abnormal. MPV (test code = 61671-4) 10.4 fL 9.5-12.9 NRBC/100 WBC (test code = 8674896599) 0.0 See_Comment [Automated MideoMe ssage] The system which generated this result transmitted reference range: 0.0 - 10.0 /100 WBCs. The reference range was not used to interpret this result as normal/abnormal. NRBC x10^3 (test code = 8887650281) See_Comment [Automated messa ge] The system which generated this result transmitted reference range: 10*3/?L. The reference range was not used to interpret this result as normal/abnormal. GRAN MAT (NEUT) % (test code = 770-8) 62.6 % IMM GRAN % (test code = 5468164207) 0.20 % LYMPH % (test code = 736-9) 27.6 % MONO % (test code = 5905-5) 5.1 % EOS % (test code = 713-8) 3.6 % BASO % (test code = 706-2) 0.9 % GRAN MAT x10^3(ANC) (test code = 8020009535) 6.50 10*3/uL 1.88-7.09 IMM GRAN x10^3 (test code = 5169803362) 0.00-0.06 LYMPH x10^3 (test code = 731-0) 2.86 10*3/uL 1.32-3.29 MONO x10^3 (test code = 742-7) 0.53 10*3/uL 0.33-0.92 EOS x10^3 (test code = 711-2) 0.37 10*3/uL 0.03-0.39 BASO x10^3 (test code = 704-7) 0.09 10*3/uL 0.01-0.07 H Lab Interpretation (test code = 85535-3) [facility] (17027)2023-08-19 11:29:24* Test Item Value Reference Range Interpretation Comme nts NA (test code = 4069960906) 137 mmol/L 135-145 K (test code = 6996232013) 3.8 mmol/L 3.5-5.0 CL (test code = 2413787422) 104 mmol/L 98-108 CO2 TOTAL (test code = 9073602105) 21 mmol/L 23-31 L AGAP (test code = 5987655021) 12 2-16 BUN (test code = 0462484533) 13 mg/dL 7-23 GLUCOSE (test code = 3582597087) 152 mg/dL 70-110 H CREATININE (test code = 0604029473) 0.64 mg/dL 0.50-1.04 TOTAL BILI (test code = 0015740026) 0.5 mg/dL 0.1-1.1 CALCIUM (test code = 3328758590) 9.0 mg/dL 8.6-10.6 T PROTEIN (test code = 4977272149) 8.0 g/dL 6.3-8.2 ALBUMIN (test code = 0930117840) 4.6 g/dL 3.5-5.0 ALK PHOS (test code = 7789187775) 64 U/L 34-122 ALTv (test code = 1742-6) 12 U/L 5-35 AST(SGOT) (test code = 2906753435) 24 U/L 13-40 eGFR (test code = 14184-7) 128.3 mL/min/1.73m2 CKD-EPI eGFR (2020). Assuming creatinine has been stable day-to-day for at least three months, the eGFR indicates Category G1 (>= 90 mL/min/1.73 m2) Lab Interpretation (test code = 53922-1) Abnormal [facility] WITH [id number] 15:17:33* Test Item Value Reference Range Interpretation [...] 32.8 g/dL 31.6-35.1 RDW-SD (test code = 29609-0) 35.3 fL 39.0-49.9 L RDW-CV (test code = 788-0) 12.4 % 12.0-15.5 PLT (test code = 777-3) 164 See_Comment L [Automated message] The system which generated this result transmitted reference range: 166 - 358 10*3/?L. The reference range was not used to interpret this result as normal/abnormal. MPV (test code = 09527-1) 10.3 fL 9.5-12.9 NRBC/100 WBC (test code = 6240815189) 0.0 See_Comment [Automated message] The system which generated this result transmitted reference range: 0.0 - 10.0 /100 WBCs. The reference range was not used to interpret this result as normal/abnormal. NRBC x10^3 (test code = 7078989133) See_Comment [Automated message] The system which generated this result transmitted reference range: 10*3/?L. The reference range was not used to interpret this result as normal/abnormal. GRAN MAT (NEUT) % (test code = 770-8) 58.3 % IMM GRAN % (test code = 4007887428) 0.40 % LYMPH % (test code = 736-9) 29.5 % MONO % (test code = 5905-5) 10.5 % EOS % (test code = 713-8) 0.2 % BASO % (test code = 706-2) 1.1 % GRAN MAT x10^3(ANC) (test code = 3742365426) 2.76 10*3/uL 1.88-7.09 IMM GRAN x10^3 (test code = 0096892731) 0.00-0.06 LYMPH x10^3 (test code = 731-0) 1.40 10*3/uL 1.32-3.29 MONO x10^3 (test code = 742-7) 0.50 10*3/uL 0.33-0.92 EOS x10^3 (test code = 711-2) 0.03-0.39 L BASO x10^3 (test code = 704-7) 0.05 10*3/uL 0.01-0.07 BANDS (test code = 4058306510) MARKED INCREASED A REACT LYMPHS (test code = 6617133262) Rare GIANT PLATELETS (test code = 5908-9) Present See_Comment A [Automated message] The system which generated this result transmitted reference range: (none). The reference range was not used to interpret this result as normal/abnormal. Lab Interpretation (test code = 16921-0) Abnormal [facility]. METABOLIC PANEL (40029)2022-11-20 15:03:06* Test Item Value Reference Range Interpretation Comme nts NA (test code = 4999665143) 136 mmol/L 135-145 K (test code = 9618950786) 4.3 mmol/L 3.5-5.0 CL (test code = 8527061222) 105 mmol/L 98-108 CO2 TOTAL (test code = 7031748522) 27 mmol/L 23-31 AGAP (test code = 3021298209) 4 2-16 BUN (test code = 5990627553) 9 mg/dL 7-23 GLUCOSE (test code = 5648130917) 96 mg/dL 70-110 CREATININE (test code = 2488041131) 0.73 mg/dL 0.50-1.04 TOTAL BILI (test code = 4901688326) 0.5 mg/dL 0.1-1.1 CALCIUM (test code = 2784089034) 8.7 mg/dL 8.6-10.6 T PROTEIN (test code = 3594732230) 6.8 g/dL 6.3-8.2 ALBUMIN (test code = 5920401596) 3.9 g/dL 3.5-5.0 ALK PHOS (test code = 1091965218) 61 U/L 34-122 ALTv (test code = 1742-6) 47 U/L 5-35 H AST(SGOT) (test code = 0490962319) 59 U/L 13-40 H eGFR (test code = 8921983604) 100.6 mL/min/1.73m2 RASHIDA (test code = RASHIDA) [...] imaging tests). Lab Interpretation (test code = 23148-2) [facility] 15:02:41* Test Item Value Reference Range Interpretation Comme nts LIPASE (test code = 6956389366) 93 U/L 0-220 Lab Interpretation (test cod e = 88816-1) Normal [facility] [id number] 14:17:00* Test Item Value Reference Range Interpretation Comme nts POCT PREG (test code = 1605) negative On board controls acceptable with C Line (test code = 3574) present POCT PREG LOT # (test code = 3575) [id number] POCT PREG TEST DATE (test code = 3576) 03/03/2024 Lab Interpretation (test cod e = 46167-3) [facility] PAN[facility] (48008)2022-08-08 15:38:58* Test Item Value Reference Range Interpretation Comme nts NA (test code = 0305924640) 136 mmol/L 135-145 K (test code = 3929319362) 3.8 mmol/L 3.5-5.0 CL (test code = 8816492717) 101 mmol/L 98-108 CO2 TOTAL (test code = 0236956709) 23 mmol/L 23-31 AGAP (test code = 8962390151) 2-16 BUN (test code = 9339942003) 13 mg/dL 7-23 GLUCOSE (test code = 8600917721) 102 mg/dL 70-110 CREATININE (test code = 3686617847) 0.66 mg/dL 0.50-1.04 TOTAL BILI (test code = 8429184173) 0.9 mg/dL 0.1-1.1 CALCIUM (test code = 7636535153) 8.8 mg/dL 8.6-10.6 T PROTEIN (test code = 1007303470) 7.4 g/dL 6.3-8.2 ALBUMIN (test code = 6068797060) 4.4 g/dL 3.5-5.0 ALK PHOS (test code = 1052684767) 80 U/L 34-122 ALTv (test code = 1742-6) 18 U/L 5-35 AST(SGOT) (test code = 3155650936) 19 U/L 13-40 eGFR (test code = 2821721488) mL/min/1.73m2 RASHIDA (test code = RASHIDA) Association [...] or urine or abnormalities in imaging tests). [facility] 15:38:38* Test Item Value Reference Range Interpretation Comme nts LIPASE (test code = 4338438459) 471 U/L 0-220 H Lab Interpretation (test cod e = 88857-6) [facility] [id number] 15:30:56* Test Item Value Reference Range Interpretation [...] 32.0 g/dL 31.6-35.1 RDW-SD (test code = 61906-5) 39.7 fL 39.0-49.9 RDW-CV (test code = 788-0) 13.4 % 12.0-15.5 PLT (test code = 777-3) See_Comment [Automated message] The system which generated this result transmitted reference range: 166 - 358 10*3/?L. The reference range was not used to interpret this result as normal/abnormal. MPV (test code = 10042-6) 10.7 fL 9.5-12.9 NRBC/100 WBC (test code = 4269700910) See_Comment [Automated message] The system which generated this result transmitted reference range: 0.0 - 10.0 /100 WBCs. The reference range was not used to interpret this result as normal/abnormal. NRBC x10^3 (test code = 0473804517) See_Comment [Automated message] The system which generated this result transmitted reference range: 10*3/?L. The reference range was not used to interpret this result as normal/abnormal. GRAN MAT (NEUT) % (test code = 770-8) 82.3 % IMM GRAN % (test code = 6539980068) 0.60 % LYMPH % (test code = 736-9) 8.5 % MONO % (test code = 5905-5) 5.8 % EOS % (test code = 713-8) 2.4 % BASO % (test code = 706-2) 0.4 % GRAN MAT x10^3(ANC) (test code = 2889517471) 11.01 10*3/uL 1.88-7.09 H IMM GRAN x10^3 (test code = 7315603466) 0.08 10*3/uL 0.00-0.06 H LYMPH x10^3 (test code = 731-0) 1.14 10*3/uL 1.32-3.29 L MONO x10^3 (test code = 742-7) 0.78 10*3/uL 0.33-0.92 EOS x10^3 (test code = 711-2) 0.32 10*3/uL 0.03-0.39 BASO x10^3 (test code = 704-7) 0.05 10*3/uL 0.01-0.07 Lab Interpretation (test code = 19331-0) [facility]normal [facility] [id number] 15:11:00* Test Item Value Reference Range Interpretation Comme nts POCT PREG (test code = 1605) negative On board controls acceptable with C Line (test code = 3574) present Lab Interpretation (test cod e = 52608-3) Normal [facility] History and Physical Notes Date/Time Note Provider [...] family history of asthma, HTN, DM, CAD, NM or cancer Social History Tobacco Use Smoking [...] cardiopulmonary process. Preliminary Report Dictated by Resident: John Lamas I, Christopher Ramirez MD., have reviewed this study and agree [...] discharge (Good Rx pride ~$86-88/month at local [facility] and [facility]'s pharmacy). Depression: - Resume home Lexapro. [...] Full code Non-tobacco user (Z71.6) Disposition: Home [facility] Notes Date/Time Note Provider Source 2024-03-15 17:44:57 Patient dc home. Follow up with pcp. YLAT Lm Blount RN [facility] 2024-03-15 16:01:43 Patient reports that she has asthma and feels like she has been having an attack all day today. Distress very mild in triage. Been out of inhaler for 2 days. Also reports abdominal pain and random ln/v for months. Mike Vergara RN [facility] 2024-02-15 10:37:03 Patient discharged to home. Patient given printed and verbal discharge instructions regarding diagnosis. Instructed to follow up with PCP. Patient verbalized understanding of instructions. Patient awake, alert, oriented, respirations even and unlabored, skin warm and dry, color appropriate for race. No adverse reaction to meds given in ER noted upon discharge. PIV removed. Discussed medications. Advised to seek medical attention for new/prolonged/worsening of symptoms, patient ambulated from unit with steady gait in no apparent distress. Patient states she feels better after breathing treatment and feels comfortable with breathing efficacy enough to leave the ED. I Vergara RN [facility] 2024-02-15 10:18:28 Patient to ED for asthma attack with wheezing. Patient has been out of her inhaler she got short of breath last night and it got worse. Lm Blount RN [facility] 2024-02-15 10:05:00 [facility] Emergency Department Note Patient Name: Dario Perla Date of : 2000 23 year old female Treatment Room: 11/11 Primary Care Physician: PATIENT DOES NOT HAVE A PCP Patient Escorted by: Family [5] Mode of Arrival: Personal means [1] EMS Treatment Prior to ED Arrival: Travel and Exposure Screening: Symptoms Does patient have any of these symptoms?: (not recorded) Exposure Screening Has patient had contact with someone with a communicable disease in the last month?: (not recorded) Diseases exposed to:: (not recorded) Is Patient ?: (not recorded) Exposure Date: (not recorded) Chief Complaint: Chief Complaint Patient presents with Asthma History of Present Illness: HPI 23yo WF with known asthma presents today with several days of SOB. She states she is out of her medications because usually they give her 3 but this time there wasn't and so she couldn't get her inhaler. Past Medical History/Immunizations: Past Medical History: Diagnosis Date Asthma Perennial allergic rhinitis, unspecified allergic rhinitis trigger 10/02/2016 Allergies: No Known Allergies Past Social History: Tobacco Use Never smoked or used smokeless tobacco. Passive Exposure: Current Alcohol Use No. Drug Use No. Sexual Activity Not sexually active. Past Surgical History: No past surgical history on file. Review of Systems: Review of Systems Constitutional: Negative for activity change, diaphoresis, fatigue, fever and weight gain. HENT: Negative for congestion, ear pain, rhinorrhea, sore throat, tinnitus and trouble swallowing. Eyes: Negative for discharge and visual disturbance. Respiratory: Positive for shortness of breath and wheezing. Negative for cough and chest tightness. Breasts: Negative for pain. Cardiovascular: Negative for chest pain and palpitations. Gastrointestinal: Negative for abdominal pain, nausea and vomiting. Genitourinary: Negative for dysuria, hematuria and difficulty urinating. Musculoskeletal: Negative for joint swelling. Skin: Negative for rash and wound. Neurological: Negative for dizziness and headaches. Psychiatric/Behavioral: Negative for agitation and confusion. The patient is not nervous/anxious. Hematological: Does not bruise/bleed easily. Endocrine: Negative for weight gain. Physical Exam: ED Triage Vitals Weight 02/15/24 1019 77.1 kg (170 lb) Actual or estimated -- Height 02/15/24 1019 1.626 m (5' 4") BP 02/15/24 1019 121/78 Pulse 02/15/24 1017 89 Resp 02/15/24 1017 22 Temp 02/15/24 1019 37.1 ?C (98.8 ?F) Temp src -- SpO2 02/15/24 1017 96 % Measured on 02/15/24 1019 Room air Physical Exam Vitals reviewed. Constitutional: Appearance: She is well-developed. HENT: Head: Normocephalic and atraumatic. Eyes: Conjunctiva/sclera: Conjunctivae normal. Cardiovascular: Rate and Rhythm: Normal rate and regular rhythm. Heart sounds: Normal heart sounds. No murmur heard. Pulmonary: Effort: Pulmonary effort is normal. Breath sounds: No stridor. Wheezing present. Comments: Sats of 91% on room air Abdominal: General: Bowel sounds are normal. Palpations: Abdomen is soft. Tenderness: There is no abdominal tenderness. Musculoskeletal: General: Normal range of motion. Cervical back: Neck supple. Skin: General: Skin is warm and dry. Capillary Refill: Capillary refill takes less than 2 seconds. Neurological: Mental Status: She is alert and oriented to person, place, and time. Cranial Nerves: No cranial nerve deficit. Psychiatric: Behavior: Behavior normal. Radiology: No orders to display Lab Results: Lab Results - No data to display EKG: If EKG completed, see Procedure Note. Orders and Treatments: No orders of the defined types were placed in this encounter. Orders Placed This Encounter Medications ipratropium-albuteroL (DUONEB) 0.5 mg-3 mg(2.5 mg base)/3 mL nebulizer solution 3 mL methylPREDNISolone sod succ (SOLU-MEDROL (PF)) injection 40 mg albuterol 90 mcg/actuation inhaler albuterol 2.5 mg /3 mL (0.083 %) nebulizer solution First Provider Eval: ED Events Date/Time Event User Comments 02/15/24 1014 Medical Screening Begins LAUREN YODER MD -- 02/15/24 101 First Provider Evaluation LAUREN YODER MD -- ED COURSE Diagnosis/Impression as of 02/15/24 1024 Mild intermittent asthma with exacerbation Procedures: Procedures MDM: Medical Decision Making After neb no more wheezing- sats now 98% on room air Patient states chest still sore but no longer working to breath Many word sentences Will refill meds and give steroid dose discharged Problems Addressed: Mild intermittent asthma with exacerbation: acute illness or injury with systemic symptoms Risk Prescription drug management. Flowsheet Documentation: Scoring Tools: No data recorded Disposition/Condition: ED Disposition ED Disposition Disch - Home Condition Stable Comment -- Discharge Medications: Current Discharge Medication List CONTINUE these medications which have CHANGED Details albuterol 2.5 mg /3 mL (0.083 %) nebulizer solution Inhale 3 mL every 4 (four) hours as needed for Wheezing or Shortness of Breath. Qty: 300 Each, Refills: 1 Associated Diagnoses: Mild persistent asthma without complication albuterol 90 mcg/actuation inhaler Inhale 2 Puffs every 4 (four) hours as needed for Wheezing or Shortness of Breath. Qty: 8.5 g, Refills: 2 Associated Diagnoses: Exacerbation of asthma, unspecified asthma severity, unspecified whether persistent CONTINUE these medications which have NOT CHANGED Details budesonide-formoteroL 160-4.5 mcg/actuation inhaler Inhale 2 Puffs in the morning and 2 Puffs in the evening. Qty: 10.2 g, Refills: 2 Associated Diagnoses: Mild intermittent asthma with exacerbation dextromethorphan-guaifenesin 10-100 mg/5 mL solution Take 10 mL by mouth every 6 (six) hours as needed for Cough. Qty: 118 mL, Refills: 0 Associated Diagnoses: Mild intermittent asthma with exacerbation methylPREDNISolone 4 mg tablets Take by mouth SEE-INSTRUCTIONS. follow package directions Qty: 21 Each, Refills: 0 Associated Diagnoses: Mild intermittent asthma with exacerbation montelukast 10 mg tablet Take 1 tablet by mouth in the morning. Qty: 30 tablet, Refills: 1 Associated Diagnoses: Mild intermittent asthma with exacerbation escitalopram oxalate (LEXAPRO) 5 mg tablet Take 1 tablet by mouth in the morning. Follow-up: Electronically signed by: Lauren Yoder DO 02/15/24 1033 [facility] 2024-01-01 12:04:50 PT D/C home. GCS15, VS stable. Given D/C paperwork. Pt ambulatory at time of discharge. Pt educated on med usage, follow up care, s/s worsening condition, need for hydration. Pt verbalized understanding. Pt ambulated from ED in NAD. Prescription x 2 Therese Bernstein RN [facility] 2024-01-01 10:35:00 Patient states: "I started having asthma attack this morning, I have cough, wheezes, and shortness of breath. I'm out of my albuterol inhaler for 2 days now." Cira Bennett RN [facility] 2023-10-28 10:40:11 Pt given printed and verbal discharge instructions regarding mild persistent asthma, encouraged hydration. 0 Prescriptions provided; 1 sent to pharmacy Pt verbalized understanding of instructions, pt awake alert oriented, resp reg unlabored, skin w/d, color appropriate for race, moves all ext well,pt encouraged to follow up with pcp. Advised to seek medical attention for new/prolonged/worsening of symptoms, Symptoms improved No adverse reaction to meds given in ER noted upon discharge PIV d'cd, dressing to site, catheter in tact. Awake, alert oriented, resp reg unlabored, skin w/d, pt leaving amb with steady gait, in no apparent distress. [facility] 2023-10-28 07:25:40 Pt arrived via [place] [facility] with c/o wheezing. 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 YLAT Analisa Dunn RN [facility] 2023-10-28 07:21:00 [facility] Emergency Department Note Patient Name: Dario Perla Date of : 2000 23 year old female Treatment Room: TX2/TX2 Primary Care Physician: PATIENT DOES NOT HAVE A PCP Patient Escorted by: Self [9] Mode of Arrival: EMS - [facility] ([place]) [43] EMS Treatment Prior to ED Arrival: Travel and Exposure Screening: Symptoms Does patient have any of these symptoms?: (not recorded) Exposure Screening Has patient had contact with someone with a communicable disease in the last month?: (not recorded) Diseases exposed to:: (not recorded) Is Patient ?: (not recorded) Exposure Date: (not recorded) Chief Complaint: Chief Complaint Patient presents with Asthma History of Present Illness: HPI 23yo WF with known asthma presents today SOB and out of her albuterol due to financial reasons. Denies productive cough or fevers. States she started feeling this way a few days ago. No sick contacts and has been admitted for this once before, never intubated per patient. EMS states gave her solumedrol and 2 nebs prior to arrival. Sats were 90s entire time. Past Medical History/Immunizations: Past Medical History: Diagnosis Date Asthma Perennial allergic rhinitis, unspecified allergic rhinitis trigger 10/02/2016 Tetanus received in last 5 years: Unknown Childhood immunizations: Up-to-date Allergies: No Known Allergies Past Social History: Tobacco Use Never smoked or used smokeless tobacco. Passive Exposure: Current Alcohol Use No. Drug Use No. Sexual Activity Not sexually active. Past Surgical History: No past surgical history on file. Review of Systems: Review of Systems Constitutional: Negative for activity change, diaphoresis, fatigue, fever and weight gain. HENT: Negative for congestion, ear pain, rhinorrhea, sore throat, tinnitus and trouble swallowing. Eyes: Negative for discharge and visual disturbance. Respiratory: Positive for shortness of breath and wheezing. Negative for cough and chest tightness. Breasts: Negative for pain. Cardiovascular: Negative for chest pain and palpitations. Gastrointestinal: Negative for abdominal pain, nausea and vomiting. Genitourinary: Negative for dysuria, hematuria and difficulty urinating. Musculoskeletal: Negative for joint swelling. Skin: Negative for rash and wound. Neurological: Negative for dizziness and headaches. Psychiatric/Behavioral: Negative for agitation and confusion. The patient is not nervous/anxious. Hematological: Does not bruise/bleed easily. Endocrine: Negative for weight gain. Physical Exam: ED Triage Vitals [10/28/23726] Weight 76.7 kg (169 lb) Actual or estimated Estimated by patient/family report Height 1.575 m (5' 2") BP 127/82 Pulse 115 Resp 18 Temp 37.4 ?C (99.3 ?F) Temp source Oral SpO2 97 % Measured on Room air Physical Exam Vitals reviewed. Constitutional: Appearance: She is well-developed. HENT: Head: Normocephalic and atraumatic. Eyes: Conjunctiva/sclera: Conjunctivae normal. Cardiovascular: Rate and Rhythm: Regular rhythm. Tachycardia present. Heart sounds: Normal heart sounds. No murmur heard. Pulmonary: Breath sounds: No stridor. Wheezing present. Abdominal: General: Bowel sounds are normal. Palpations: Abdomen is soft. Tenderness: There is no abdominal tenderness. Musculoskeletal: General: Normal range of motion. Cervical back: Neck supple. Skin: General: Skin is warm and dry. Capillary Refill: Capillary refill takes less than 2 seconds. Neurological: Mental Status: She is alert and oriented to person, place, and time. Cranial Nerves: No cranial nerve deficit. Psychiatric: Behavior: Behavior normal. Radiology: No orders to display Lab Results: Lab Results - No data to display EKG: If EKG completed, see Procedure Note. Orders and Treatments: No orders of the defined types were placed in this encounter. Orders Placed This Encounter Medications DISCONTD: albuterol (PROVENTIL) 2.5 mg /3 mL (0.083 %) nebulizer solution 2.5 mg albuterol (PROVENTIL) 2.5 mg /3 mL (0.083 %) nebulizer solution 7.5 mg albuterol 90 mcg/actuation inhaler First Provider Eval: ED Events Date/Time Event User Comments 10/28/23732 Medical Screening Begins LAUREN YODER MD -- 10/28/23732 First Provider Evaluation LAUREN YODER MD -- ED COURSE Diagnosis/Impression as of 10/28/23 1020 Mild persistent asthma with exacerbation Medication refill Procedures: Procedures MDM: Medical Decision Making Tachycardia likely from nebs given Patient given another neb and states she is feeling much better Monitored and patient fell asleep and states she is very tired since she didn't sleep much last night Called in new inhalers since she states no nebulizer machine at home (despite medications given to the contrary) with refills Discharged home with much improved exam and recommended to get meds, if needed return to ER if cannot breathe!! Problems Addressed: Medication refill: self-limited or minor problem Mild persistent asthma with exacerbation: acute illness or injury with systemic symptoms Risk OTC drugs. Prescription drug management. Flowsheet Documentation: Scoring Tools: No data recorded Disposition/Condition: ED Disposition ED Disposition Disch - Home Condition Stable Comment -- Discharge Medications: Current Discharge Medication List CONTINUE these medications which have CHANGED Details albuterol 90 mcg/actuation inhaler Inhale 2 Puffs every 4 (four) hours as needed for Wheezing or Shortness of Breath. Qty: 8.5 g, Refills: 2 Associated Diagnoses: Exacerbation of asthma, unspecified asthma severity, unspecified whether persistent CONTINUE these medications which have NOT CHANGED Details budesonide-formoteroL 160-4.5 mcg/actuation inhaler Inhale 2 Puffs in the morning and 2 Puffs in the evening. Qty: 10.2 g, Refills: 2 Associated Diagnoses: Mild intermittent asthma with exacerbation dextromethorphan-guaifenesin 10-100 mg/5 mL solution Take 10 mL by mouth every 6 (six) hours as needed for Cough. Qty: 118 mL, Refills: 0 Associated Diagnoses: Mild intermittent asthma with exacerbation methylPREDNISolone 4 mg tablets Take by mouth SEE-INSTRUCTIONS. follow package directions Qty: 21 Each, Refills: 0 Associated Diagnoses: Mild intermittent asthma with exacerbation montelukast 10 mg tablet Take 1 tablet by mouth in the morning. Qty: 30 tablet, Refills: 1 Associated Diagnoses: Mild intermittent asthma with exacerbation escitalopram oxalate (LEXAPRO) 5 mg tablet Take 1 tablet by mouth in the morning. ALBUTEROL 2.5 mg /3 mL (0.083 %) nebulizer solution USE 1 VIAL IN NEBULIZER EVERY 6 HOURS NEEDED FOR SHORTNESS OF BREATH AND WHEEZING Qty: 300 Each, Refills: 1 Comments: Please consider 90 day supplies to promote better adherence Associated Diagnoses: Mild persistent asthma without complication Follow-up: Electronically signed by: Lauren Yoder DO 10/28/23 1021 [facility] 2023-08-21 15:57:42 2nd call no contact. Y Oscar LVN [facility] 2023-08-21 12:57:22 TRANSITIONAL CARE MANAGEMENT ASSESSMENT 08/21/2023 Dario Perla [id number] Dario Perla is a 23 year old /White female was admitted on 08/19/23 to [facility], [facility]. She was discharged on 08/20/23 with discharge disposition of HR- Routine Discharge. Admitting Physician: Dawson Peters Discharge Diagnosis: Mild intermittent asthma with exacerbation [J45.21]No contact. No linked episodes TCM Tik-[id number]-xv-face outreach documentation: Future Appointments: L CASHIER [facility] 2023-08-20 12:03:10 Problem: Venous Thromboembolism, (actual or risk of) Goal: Absence of venous thromboembolism (Risk) Outcome: Adequate for discharge Problem: Infection Risk Goal: Absence of infection Outcome: Adequate for discharge Problem: Falls, Risk of Goal: Absence of falls Outcome: Adequate for discharge Problem: Discharge Planning Goal: Adequate for discharge Outcome: Adequate for discharge Goal: Effective communication Outcome: Adequate for discharge Problem: Skin integrity Impaired (Risk or Actual) Goal: Prevention of new skin breakdown Outcome: Adequate for discharge Problem: Respiratory Function - Impaired Goal: Able to cough effectively Outcome: Adequate for discharge Goal: Adequate oxygenation Outcome: Adequate for discharge Goal: Adequate work of breathing Outcome: Adequate for discharge Goal: Patent airway Outcome: Adequate for discharge L CASHIER Chantale Barraza RN [facility] 2023-08-20 00:26:36 Problem: Venous Thromboembolism, (actual or risk of) Goal: Absence of venous thromboembolism (Risk) Outcome: Progressing as expected Problem: Infection Risk Goal: Absence of infection Outcome: Progressing as expected Problem: Falls, Risk of Goal: Absence of falls Outcome: Progressing as expected Problem: Discharge Planning Goal: Adequate for discharge Outcome: Progressing as expected Goal: Effective communication Outcome: Progressing as expected Problem: Skin integrity Impaired (Risk or Actual) Goal: Prevention of new skin breakdown Outcome: Progressing as expected Problem: Respiratory Function - Impaired Goal: Able to cough effectively Outcome: Progressing as expected Goal: Adequate oxygenation Outcome: Progressing as expected Goal: Adequate work of breathing Outcome: Progressing as expected Goal: Patent airway Outcome: Progressing as expected Y Gonzalez RN [facility] 2023-08-19 17:30:36 Problem: Venous Thromboembolism, (actual or risk of) Goal: Absence of venous thromboembolism (Risk) Outcome: Progressing as expected Problem: Infection Risk Goal: Absence of infection Outcome: Progressing as expected Problem: Falls, Risk of Goal: Absence of falls Outcome: Progressing as expected Problem: Discharge Planning Goal: Adequate for discharge Outcome: Progressing as expected Goal: Effective communication Outcome: Progressing as expected Problem: Skin integrity Impaired (Risk or Actual) Goal: Prevention of new skin breakdown Outcome: Progressing as expected Problem: Respiratory Function - Impaired Goal: Able to cough effectively Outcome: Progressing as expected Goal: Adequate oxygenation Outcome: Progressing as expected Goal: Adequate work of breathing Outcome: Progressing as expected Goal: Patent airway Outcome: Progressing as expected [facility] 2023-08-19 07:10:00 Nurse Report Report given to FLAVIO Kenyon over the phone, no questions received. Chief complaint, assessment findings and medications were discussed. Plan of care discussed with patient, patient aware of plan. Patient in stable condition at time report was given,no distress. Vital signs reassessed. Patient will be moved upstairs by tech shortly. Mary Kay Huff RN Y Huff RN [facility] 2023-08-19 06:52:54 Nurse Report Report received from FLAVIO Gutierrez. Chief complaint, assessment findings and medications were discussed. Plan of care discussed with patient, patient aware of plan. Patient in stable condition at time report was received,no distress. Pending bed assignment for admission. Mary Kay Huff RN [facility] 2023-08-19 04:59:06 Pt arrives ambulatory to ED reporting that she was having an asthma attack. Pt was brought directly back to a room and vomited on the way back. She was found to have an o2 sat 82% RA. Pt says she ran out of her meds that she normally takes for her asthma so she came in to be seen. L CASHIER Roxanna Glaser RN [facility] 2023-03-23 18:37:07 Formatting of this n ote might be different from the original. Pt discharged with diagnosis of SOB. Printed and verbal instructions reviewed with and given to pt. Prescriptions given x 0. Pt verbalized understanding of teaching and recommended follow-up. Denies questions or concerns at this time. Pt ambulatory at discharge. Appears in no apparent distress. No ataxia noted. [facility] 2023-03-23 17:03:19 Formatting of this n ote might be different from the original. Pt to ER via [facility] [place] asthma attack. EMS states pt took breathing tx this morning and didn't feel better, so she then called EMS. EMS gave her an A+A tx, 125mg solumedrol, and 4mg zofran IV. Pt states she feels a lot better. T Sonya Jaquez RN [facility] 2023-03-23 16:56:00 Formatting of this n ote is different from the original. [facility] Emergency Department Note Patient Name: Dario Perla Date of : 2000 22 year old female Treatment Room: TX6/TN6 Primary Care Physician: PATIENT DOES NOT HAVE A PCP Patient Escorted by: Self [9] Mode of Arrival: EMS - [facility] ([place]) [43] EMS Treatment Prior to ED Arrival: TOUR ACTOR treatment: Medication (comment) TOUR ACTOR treatment comments: see triage note Travel and Exposure Screening: Symptoms Does patient have any of these symptoms?: (not recorded) Exposure Screening Has patient had contact with someone with a communicable disease in the last month?: (not recorded) Diseases exposed to:: (not recorded) Is Patient ?: (not recorded) Exposure Date: (not recorded) Chief Complaint: Chief Complaint Patient presents with Asthma History of Present Illness: HPI Dario Perla is a 22 year old female with PMHx of reported asthma presenting brought in by EMS after she took her breathing treatment this morning and then did not feel any better throughout the day. Patient reports that she called EMS. Patient received albuterol treatment, solumedrol 125 mg and zofran 4 mg EMS prior to arrival. Patient reports that she is now feeling much better. Patient denies any cough, nausea, vomiting, chest pain. Patient reports that she had been feeling SOB and tired this morning. No known sick contacts. Past Medical History/Immunizations: Past Medical History: Diagnosis Date Asthma Perennial allergic rhinitis, unspecified allergic rhinitis trigger 10/02/2016 Tetanus received in last 5 years: Unknown Childhood immunizations: Up-to-date Allergies: No Known Allergies Past Social History: Tobacco Use Never smoked or used smokeless tobacco. Alcohol Use No. Drug Use No. Sexual Activity Not sexually active. Past Surgical History: No past surgical history on file. Review of Systems: Review of Systems Constitutional: Positive for fatigue and fever. HENT: Negative for congestion, facial swelling and rhinorrhea. Eyes: Negative for photophobia and visual disturbance. Respiratory: Positive for shortness of breath. Negative for apnea, cough, choking, chest tightness, wheezing and stridor. Cardiovascular: Negative for chest pain, palpitations and leg swelling. Gastrointestinal: Negative for abdominal distention, abdominal pain, anal bleeding, blood in stool, constipation, diarrhea, nausea and vomiting. Genitourinary: Negative for dysuria. Musculoskeletal: Negative for neck pain. Neurological: Negative for tremors, seizures, syncope, speech difficulty, weakness, light-headedness and numbness. Physical Exam: ED Triage Vitals [03/23/23 1705] Weight 77.1 kg (170 lb) Actual or estimated Estimated by patient/family report Height 1.575 m (5' 2") BP 112/80 Pulse 96 Resp 20 Temp 36.7 ?C (98.1 ?F) Temp source Axillary SpO2 100 % Measured on Room air Physical Exam Vitals and nursing note reviewed. Constitutional: General: She is not in acute distress. Appearance: She is well-developed. She is not diaphoretic. HENT: Head: Normocephalic and atraumatic. Eyes: General: No scleral icterus. Right eye: No discharge. Left eye: No discharge. Conjunctiva/sclera: Conjunctivae normal. Cardiovascular: Rate and Rhythm: Normal rate and regular rhythm. Heart sounds: Normal heart sounds. No murmur heard. No friction rub. No gallop. Pulmonary: Effort: Pulmonary effort is normal. No respiratory distress. Breath sounds: Normal breath sounds. No wheezing. Chest: Chest wall: No tenderness. Abdominal: General: There is no distension. Palpations: Abdomen is soft. There is no mass. Tenderness: There is no abdominal tenderness. There is no guarding or rebound. Musculoskeletal: Cervical back: Neck supple. Skin: General: Skin is warm and dry. Neurological: Mental Status: She is alert and oriented to person, place, and time. Cranial Nerves: No cranial nerve deficit. Coordination: Coordination normal. Psychiatric: Behavior: Behavior normal. Radiology: XR CHEST 1 VW Final Result Study: Single view chest. Ordering Physician: SRI ROJAS Date: 03/23/2023 6:00 PM History:Shortness of breath Findings: Single frontal view chest demonstrates a normal heart size. The lungs are clear without infiltrate, pleural effusion or pneumothorax. No acute osseous abnormality is identified. IMPRESSION Impression: 1. No acute cardiopulmonary process is identified. RL: [id number] Lab Results: Lab Results - No data to display EKG: If EKG completed, see Procedure Note. Orders and Treatments: Orders Placed This Encounter Procedures XR CHEST 1 VW No orders of the defined types were placed in this encounter. First Provider Eval: ED Events Date/Time Event User Comments 03/23/231715 Medical Screening Begins SRI ROJAS MD -- 03/23/231715 First Provider Evaluation SRI ROJAS MD -- No notes of EC Admission Criteria type on file. ED COURSE Dario Perla is a 22 year old female presenting brought in by EMS after reported asthma attack. Patient now feeling much better. Xray done to ensure no other etiology for reported SOB. Xray unremarkable. Plan for discharge home with close PCP follow up. Patient advised to return to the ER for any worsening symptoms. Diagnosis/Impression as of 03/23/23 1730 SOB (shortness of breath) Procedures: Procedures MDM: Medical Decision Making Dario Perla is a 22 year old female presenting brought in by EMS after reported asthma attack. Patient now feeling much better. Xray done to ensure no other etiology for reported SOB. Xray unremarkable. Plan for discharge home with close PCP follow up. Patient advised to return to the ER for any worsening symptoms. Problems Addressed: SOB (shortness of breath): acute illness or injury Amount and/or Complexity of Data Reviewed Radiology: ordered. Flowsheet Documentation: Scoring Tools: No data recorded Disposition/Condition: ED Disposition ED Disposition Disch - Home Condition Stable Comment -- Discharge Medications: Patient's Medications START taking these medications No medications on file CONTINUE taking these medications which have NOT CHANGED ALBUTEROL 2.5 MG /3 ML (0.083 %) NEBULIZER SOLUTION USE 1 VIAL IN NEBULIZER EVERY 6 HOURS NEEDED FOR SHORTNESS OF BREATH AND WHEEZING ALBUTEROL 90 MCG/ACTUATION INHALER Inhale 2 Puffs every 4 (four) hours as needed for Wheezing, Shortness of Breath or Chest tightness. AMOXICILLIN-CLAVULANATE 875-125 MG PER TABLET Take 1 tablet by mouth every 12 (twelve) hours. DICYCLOMINE 20 MG TABLET Take 1 tablet by mouth 4 (four) times daily as needed for Abdominal pain. IBUPROFEN 800 MG TABLET Take 1 tablet by mouth every 8 (eight) hours as needed for Pain (scale 4-6). MONTELUKAST 10 MG TABLET Take 1 tablet by mouth every evening. ONDANSETRON 4 MG DISINTEGRATING TABLET Take 1 tablet by mouth every 8 (eight) hours as needed for Nausea and Vomiting (N/V). START taking Modified Medications as Prescribed No medications on file STOP taking these medications No medications on file Follow-up: Electronically signed by: Sri Rojas MD 03/23/231829 T [facility]
[2024-11-29 14:18] LABS: Specific Gravity 1.024 (1.005-1.030); Urine Bacteria None Seen /HPF (<20); Urine Bilirubin NEGATIVE (Negative); Urine Blood Negative (Negative); Urine Clarity Turbid (Clear); Urine Color Light-Yellow (Yellow); Urine Crystals Unidentified Few /HPF (None Seen); Urine Culture Reflex Order NOT NEEDED; Urine Glucose NEGATIVE (Negative); Urine Ketones NEGATIVE (Negative); Urine Microscopic Reflex YN ORDER UMIC; Urine Mucus Slight /HPF (None Seen); Urine Nitrite NEGATIVE (Negative); Urine Protein NEGATIVE (Negative); Urine RBC <5 /HPF (None Seen); Urine Urobilinogen Normal (Normal); Urine WBC <5 /HPF (<5); Urine WBC Clump Rare /HPF (None Seen)
--- NOTE | 2024-11-29 14:43 | ER ---
Nurse's Notes [facility] Name: Barb Perla Age: 24 yrs Sex: Female : 2000 Arrival Date: 11/29/2024 Time: 13:39 Bed 10 Private MD: Diagnosis: Urinary frequency Presentation: 11/29 13:54 Chief complaint: Patient states: "For a few days now, I've urinating frequently and a mb9 lot at once. I don't have any burning with urination.". Coronavirus screen: Vaccine status: Patient reports being unvaccinated. Ebola Screen: No symptoms or risks identified at this time. Initial Sepsis Screen: Does the patient meet any 2 criteria? No. Patient's initial sepsis screen is negative. Does the patient have a suspected source of infection? No. Patient's initial sepsis screen is negative. Risk Assessment: Do you want to hurt yourself or someone else? Patient reports no desire to harm self or others. Onset of symptoms was November 29, 2024. 13:54 Acuity: DRAKE 4 mb9 13:54 Method Of Arrival: Ambulatory mb9 Triage Assessment: 13:56 General: Appears in no apparent distress. Behavior is calm, cooperative. Pain: Denies mb9 pain. EENT: No signs and/or symptoms were reported regarding the EENT system. Neuro: Calloway Agitation-Sedation Scale (RASS): 0 - Alert and Calm Level of Consciousness is awake, alert, obeys commands, Oriented to person, place, time, situation, none. Cardiovascular: Patient's skin is warm and dry. Respiratory: Airway is patent Respiratory effort is even, unlabored, Respiratory pattern is regular, symmetrical. GI: No signs and/or symptoms were reported involving the gastrointestinal system. : Reports urgency, urinary frequency. Derm: Skin is pink, warm \\T\\ dry. Musculoskeletal: Range of motion: intact in all extremities. 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 - Infectious Disease History:: Denies. - Social history:: Smoking status: Patient denies any tobacco usage or history of. Screenin:56 [facility] ED Fall Risk Assessment (Adult) History of falling in the last 3 months, mb9 including since admission No falls in past 3 months (0 pts) Confusion or Disorientation No (0 pts) Intoxicated or Sedated No (0 pts) Impaired Gait No (0 pts) Mobility Assist Device Used No (0 pt) Altered Elimination No (0 pt) Score/Fall Risk Level 0 - 2 = Low Risk Oriented to surroundings, Maintained a safe environment, Educated pt \\T\\ family on fall prevention, incl call for assistance when getting out of bed. Abuse screen: Denies threats or abuse. Nutritional screening: No deficits noted. Tuberculosis screening: No symptoms or risk factors identified. Assessment: 13:56 Reassessment: see triage assessment. mb9 Vital Signs: 13:54 BP 128 / 65; Pulse 66; Resp 18; Temp 98; Pulse Ox 100% ; Weight 92.53 kg; Height 5 ft. mb9 2 in. ; Pain 0/10; 14:57 BP 125 / 73; Pulse 60; Resp 15; Pulse Ox 100% ; Pain 0/10; ll1 13:54 Body Mass Index 37.31 (92.53 kg, 157.48 cm) mb9 13:54 Pain Scale: Adult mb9 14:57 Pain Scale: Adult ll1 ED Course: 13:44 Patient arrived in ED. gl 13:45 Inés [facility]ined[facility]C [facility] kb 13:45 Cali Steele MD is Attending Physician. kb 13:50 Maribell Palacios RN is Primary Nurse. mb9 13:55 Triage completed. mb9 13:55 Arm band placed on. mb9 13:57 Bed in low position. Call light in reach. Side rails up X 1. Provided Education on: mb9 press call light if needing anything. Client placed on continuous cardiac and pulse oximetry monitoring. NIBP monitoring applied. 13:57 No provider procedures requiring assistance completed. mb9 15:00 Patient did not have IV access during this emergency room visit. ll1 Administered Medications: No medications were administered Medication: 13:57 VIS not applicable for this client. mb9 Outcome: 14:42 Discharge ordered by . kb 14:57 Patient left the ED. ll1 14:57 Discharged to home ambulatory, ll1 14:57 Condition: stable 14:57 Discharge instructions given to patient, Instructed on discharge instructions, follow up and referral plans. Demonstrated understanding of instructions, follow-up care, Signatures: Inés Pineda FNP-C FNP-Sangita Gonzalez, RN RN ll1 Maribell Palacios RN RN mb9 Paulina Gold, Reg Reg gl
--- NOTE | 2024-11-29 14:43 | EDPHYS ---
Physician Documentation [facility] Name: Barb Perla Age: 24 yrs Sex: Female : 2000 Arrival Date: 11/29/2024 Time: 13:39 Bed 10 Private MD: ED Physician Cali Steele HPI: 11/29 14:41 This 24 yrs old Female presents to ER via Ambulatory with complaints of Urinary Problem.kb 14:41 Pt is a 24 year old female who presents for urinary frequency and suprapubic pain that kb started a few days ago. Denies fever, dysuria, hematuria. 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 - Infectious Disease History:: Denies. - Social history:: Smoking status: Patient denies any tobacco usage or history of. ROS: 14:39 Constitutional: As per HPI kb Exam: 14:39 Constitutional: This is a well developed, well nourished patient who is awake, alert, kb and in no acute distress. Head/Face: Normocephalic, atraumatic. ENT: Moist Mucous membranes Cardiovascular: Regular rate Respiratory: Respirations even and unlabored. No increased work of breathing. Talking in full sentences Abdomen/GI: Soft, non-tender. No distention Skin: Warm, dry with normal turgor. Normal color. MS/ Extremity: Pulses equal, no cyanosis. Neurovascular intact. Full, normal range of motion. Neuro: Awake and alert, GCS 15, oriented to person, place, time, and situation. Vital Signs: 13:54 BP 128 / 65; Pulse 66; Resp 18; Temp 98; Pulse Ox 100% ; Weight 92.53 kg; Height 5 ft. mb9 2 in. ; Pain 0/10; 14:57 BP 125 / 73; Pulse 60; Resp 15; Pulse Ox 100% ; Pain 0/10; ll1 13:54 Body Mass Index 37.31 (92.53 kg, 157.48 cm) mb9 13:54 Pain Scale: Adult mb9 14:57 Pain Scale: Adult ll1 MDM: 13:48 Medical Screening Exam initiated kb 14:40 Differential diagnosis: UTI, hyperglycemia, . Data reviewed: vital signs, kb nurses notes. I considered the following discharge prescriptions or medication management in the emergency department Antibiotics: At this time antibiotics are not recommended. Counseling: I had a detailed discussion with the patient and/or guardian regarding the historical points, exam findings, and any diagnostic results supporting the discharge/admit diagnosis, lab results, the need for outpatient follow up, a family practitioner, to return to the emergency department if symptoms worsen or persist or if there are any questions or concerns that arise at home. 11/29 13:53 Order name: Test, Urine; Complete Time: 14:26 kb 11/29 13:53 Order name: UA Rfx Hesham Cult if indicated; Complete Time: 14:26 kb 11/29 14:46 Order name: Glucose, Ancillary Testing; Complete Time: 14:47 EDMS 11/29 14:26 Order name: Blood Glucose Level; Complete Time: 14:36 kb Administered Medications: No medications were administered Disposition: 15:11 Co-signature as Attending Physician, Cali Steele MD I reviewed the patient's care rn provided by the Advanced Practice Provider and agree with the diagnosis and treatment plan. Disposition Summary: 11/29/24 14:42 Discharge Ordered Notes: Location: Home kb Condition: Stable kb Diagnosis - Urinary frequency kb Followup: kb - With: Emergency Department - When: As needed - Reason: Worsening of condition Followup: kb - With: Private Physician - When: 2 - 3 days - Reason: Recheck today's complaints, Continuance of care, Re-evaluation by your physician Discharge Instructions: - Discharge Summary Sheet kb - Urinary Frequency, Adult kb Forms: - Medication Reconciliation Form kb - Antibiotic Education kb - Prescription Opioid Use kb - Patient Portal Instructions kb - Leadership Thank You Letter kb Signatures: Dispatcher [employer] Inés León, COIL WRAPPER-C COIL WRAPPER-Cali Jain MD MD rn Wilkerson, FLAVIO Sanchez RN
[2024-11-29 17:15] VITALS: BP 128/65; TEMP 98; O2SAT 100
== END 2024-11-29 14:57 | disposition home or self-care (01) ==
LOC: ER 13:39
DX: R35.0 Frequency of micturition (principal)
CPT/HCPCS: 81001; 81025; 82947; 99283